=== PATIENT | male | born 1955 | race Caucasian/White ===

== ENCOUNTER 2024-03-10 09:38 | Day surgery (SDC) | payer OTHER, SELFPAY ==
--- NOTE | 2024-03-09 09:48 | HO.ANESPROP2 ---
Documented by User: Karen Robles NP 03/09/24 09:49 HPI - Anesthesia Eval Consult details Narrative: 68yo M for Colonoscopy COUNTS INCLUDE 234 BEDS AT THE [facility] Past Medical History Medical History (Updated 03/09/24 @ 06:50 by Lindsay Cedeño RN) Osteoarthritis Prostate cancer Family History Family History (Updated 03/09/24 @ 06:50 by Lindsay Cedeño RN) Other Colon cancer Surgical History Surgical History (Updated 03/09/24 @ 06:51 by Lindsay Cedeño RN) H/O prostatectomy Social History Social History Patient Tobacco Use Status: Never used Tobacco Use of substances other than those prescribed or required for medical reasons: No Are you DNR?: No Advance Directives: No Advance Directives Information Provided: Yes Meds Allergies Allergy/AdvReac Type Severity Reaction Status Date / Time No Known Allergies Allergy Verified 03/10/24 10:07 [No Known Allergies*] Home Medications ?Medication ?Instructions ?Recorded ?Confirmed ?Last Taken ?Type No Known Home Meds 03/09/24 03/09/24 Unknown History Assessment and Plan Assessment Anesthesia Assessment: Chart Reviewed Documented by User: Jakob Marcus MD 03/10/24 12:12 COUNTS INCLUDE 234 BEDS AT THE [facility] Past Medical History Medical History (Updated 03/09/24 @ 06:50 by Lindsay Cedeño RN) Osteoarthritis Prostate cancer Family History Family History (Updated 03/09/24 @ 06:50 by Lindsay Cedeño RN) Other Colon cancer Family history of problems with anesthesia: No Surgical History Surgical History (Updated 03/09/24 @ 06:51 by Lindsay Cedeño RN) H/O prostatectomy History of Problems with Anesthesia: No Social History Social History Patient Tobacco Use Status: Never used Tobacco Use of substances other than those prescribed or required for medical reasons: No Are you DNR?: No Advance Directives: No Advance Directives Information Provided: Yes Meds Allergies Allergy/AdvReac Type Severity Reaction Status Date / Time No Known Allergies Allergy Verified 03/10/24 10:07 [No Known Allergies*] Home Medications ?Medication ?Instructions ?Recorded ?Confirmed ?Last Taken ?Type No Known Home Meds 03/09/24 03/09/24 Unknown History Exam Airway Mallampati Class: II TM Dist: <=3cm Neck ROM: Full Loose/Missing/Broken Teeth: No Heart: rrr Lungs: cta Assessment and Plan Assessment Anesthesia Assessment: Anesthesia Plan Discussed Final Anesthetic Review Family History of Problems with Anesthesia: No History of Problems with Anesthesia: No NPO: Yes ASA Class: II Final Preanesthetic Review: No Changes in Pt Med Stat, Meds/Allgs Chart Reviewed, Consent Obtained/Reviewed and Anes Risks/Benef Reviewed Patient Risk: Intermediate Procedure Risk: Intermediate Anesthetic Plan Anesthetic Plan: TIVA Disposition: Standard PACU
[2024-03-10 10:02] VITALS: BMI 35.4
[2024-03-10 12:02] VITALS: BP 151/92; PULSE 16; RESP 16; TEMP 35.9; O2SAT 98
[2024-03-10] MEDS: Lactated Ringers 1,000 ML 100 ML IVCONT (12:03)
--- NOTE | 2024-03-10 12:50 | MHC.SHP ---
Pre-Procedural Eval Section A - 24 Hr Update-Section A only Date of Service: 03/10/24 The patient is an INPATIENT: No Changes since office visit: No Cold of Flu in the past 2 weeks, No New Medical Problems, No Changes in Medication and No Patient answered all questions The patient has been examined within 24 hours of the surgical procedure. The History & Physical has been completed within 30 days and I have reviewed it.: Yes Section B - Complete if H&P > 30 days Chief Complaint: screening Allergies: Allergies Allergy/AdvReac Type Severity Reaction Status Date / Time No Known Allergies Allergy Verified 03/10/24 10:07 [No Known Allergies*] Plan I have reviewed the history and physical and performed a pertinent physical examination on my patient. No changes have occurred unless specified. Time Spent With Patient Time: Total time managing care of this patient today ____ minutes.
[2024-03-10 14:14] VITALS: BP 95/65; PULSE 68; RESP 16; TEMP 36.8; O2SAT 94
--- NOTE | 2024-03-10 14:27 | OP_ITS ---
DATE OF SERVICE: 03/10/2024 SURGEON: Toby Martínez MD INDICATIONS: Colon cancer screening and family history of colon cancer. PREOPERATIVE DIAGNOSIS: POSTOPERATIVE DIAGNOSIS: PROCEDURE PERFORMED: ESTIMATED BLOOD LOSS: COMPLICATIONS: ANESTHESIA: ASSISTANTS: SPECIMENS: PROCEDURE: Colonoscopy to the cecum. MEDICATIONS: Monitored anesthesia care. DESCRIPTION OF PROCEDURE: A history and physical performed, the risks and benefits of the procedure were explained to the patient. Informed consent was obtained. The patient was placed in the left lateral decubitus position. A digital rectal exam was performed and was found to be normal. The Olympus pediatric video colonoscope was introduced into the rectum and advanced to the cecum. The cecum was identified by transillumination, palpation, and identification of ileocecal valve. Examination was performed. The scope was removed. He tolerated the procedure well and was taken to recovery area in stable condition. FINDINGS: The terminal ileum was briefly examined and appeared normal. The visualized colonic mucosa was normal. The quality of the prep was good. No polyps were identified. There was mild sigmoid diverticulosis. Retroflexed examination showed small internal hemorrhoids. IMPRESSION: Normal colonoscopy. RECOMMENDATIONS: 1. Follow up as needed. 2. Repeat colonoscopy is recommended in 5 years because of family history. MD NICOLE Schroeder/MASOUD / [id number]
[2024-03-10 14:29] VITALS: BP 119/90; PULSE 73; RESP 16; TEMP 36.8; O2SAT 96
== END 2024-03-10 14:50 | disposition home or self-care (01) ==
PROVIDERS: PCP Nurse Practitioner Family; Visit Provider Internal Medicine Gastroenterology
PROC: 0DJD8ZZ Inspection of Lower Intestinal Tract, Via Natural or Artificial Opening Endoscopic (ICD-10-PCS; CPT 45378; principal; 2024-03-10 13:00)
DX: Z12.11 Encounter for screening for malignant neoplasm of colon (principal); K57.30 Diverticulosis of large intestine without perforation or abscess without bleeding; K64.8 Other hemorrhoids; Z80.0 Family history of malignant neoplasm of digestive organs
CPT/HCPCS: G0105; J2704

== ENCOUNTER 2024-03-27 12:56 | Outpatient (AMB) | payer OTHER, SELFPAY ==
--- NOTE | 2024-03-27 14:07 | MHC.OFFVIS ---
Intake Visit Reasons: nocturia Allergies No Known Allergies [No Known Allergies*] Allergy (Verified 03/10/24 10:07) Medication List - Last Reconciled 03/27/24 by Edgardo Garcia MD vibegron (Gemtesa) 75 mg PO DAILY HPI Comments Details: Sherwin is a 68-year-old who is here for evaluation with complaints of urinary frequency, nocturia 4-5 times, denies daytime urgency. The patient has a history of prostate cancer diagnosed 2018, PSA 07/04/2019 was 11.39. Prostate biopsies done at [facility] on 08/01/2019 grade group 1 and grade group 2 adenocarcinoma of the prostate. Status post radical retropubic prostatectomy in [place]. PSAs have been negligible. Labs 07/14/2023 PSA less than 0.10. Urinalysis leukocytes negative blood trace, bladder scan PVR 0 mL. The patient states that he stops drinking by 18:00 he denies sleep apnea. We will trial Gemtesa 75 mg daily after dinner. The patient states that since his prostatectomy he no longer has erections. I have discussed treatment options to include oral medication as well as penile injections and penile prosthesis. The patient is interested in a penile prosthesis I will refer him to Dr. Jade for further evaluation. [facility] Medical History Pain in right knee Obesity, unspecified Nocturia more than twice per night History of herpes zoster Contact with and (suspected) exposure to other hazardous substances Carcinoma in situ of prostate Bilateral inguinal hernia, without obstruction or gangrene, recurrent Osteoarthritis Prostate cancer Surgical History H/O prostatectomy Family History Other Colon cancer Social History Patient Tobacco Use Status: Never used Tobacco Review of Systems Const All systems reviewed & are unremarkable except as noted in HPI and below Reports no additional complaints Eyes Reports no additional complaints ENT Reports no additional complaints Card Reports no additional complaints Resp Reports no additional complaints GI Reports no additional complaints Reports as per HPI Musc Reports no additional complaints Skin/Breast Reports system reviewed and no additional complaints, except as documented Neuro Reports no additional complaints Psych Reports no additional complaints Endo Reports no additional complaints Ariel/Lymph Reports no additional complaints Aller/Immun Reports no additional complaints Physical Exam Const General: healthy appearing, no acute distress and well developed Orientation/consciousness: patient oriented x3 HEENT Head: Yes normocephalic and Yes atraumatic Eyes Conjunctivae: conjunctivae normal Neck Neck: Yes normal visual inspection Chest Chest palpation & inspection: normal inspection of the chest Resp Effort & Inspection: normal respiratory effort Cardio Rate: regular rate GI Inspection: Yes normal to inspection Palpation (GI): Soft to palpation Skin General skin exam: no rashes or lesions noted Neuro General: patient oriented x3 Extrem General: No pedal edema Psych Appearance: grossly normal Affect: normal affect Office Procedures Post Void Residual Post Residual Void Post Void Residual (PVR): 0 [id number] Void Residual by ultrasound Results AMB Urinalysis, Automated UA Leukoctes 0 Jonel/uL Last Edit by Victoria Squires [facility] on 03/27/24 14:20 UA Nitrite Negative Last Edit by Victoria Squires [facility] on 03/27/24 14:20 UA Urobilinogen 0.2 mg/dL Last Edit by Victoria Squires [facility] on 03/27/24 14:20 UA Protein 0 mg/dL Last Edit by Victoria Squires [facility] on 03/27/24 14:20 UA pH 5.5 Last Edit by Victoria Squires [facility] on 03/27/24 14:20 UA Blood 10 Greg/uL Last Edit by Victoria Squires [facility] on 03/27/24 14:20 UA Specific [place] 1.030 Last Edit by Victoria Squires [facility] on 03/27/24 14:20 UA Ketone Negative Last Edit by Victoria Squires [facility] on 03/27/24 14:20 UA Bilirubin 0 mg/dL Last Edit by Victoria Squires [facility] on 03/27/24 14:20 UA Glucose 0 mg/dL Last Edit by Victoria Squires [facility] on 03/27/24 14:20 Results Reviewed Results Reviewed: 08/01/2019 - Prostate biopsy - adenocarcinoma grade group 1 and 2, report scanned into chart. Assessment & Plan Assessment & Plan (1) History of prostate cancer: Code(s): Z85.46 - Personal history of malignant neoplasm of prostate Category: Medical (2) Nocturia: Code(s): R35.1 - Nocturia Category: Medical (3) Erectile dysfunction after radical prostatectomy: Code(s): N52.31 - Erectile dysfunction following radical prostatectomy Category: Medical Plan Nocturia. Gemtesa daily in evening, ED post RRP fu with Dr Jade discuss penile prosthesis Orders: Orders AMB Post Void Residual by ultrasound Today R35.1 - Nocturia AMB Urinalysis Automated Today Z13.9 - Encounter for screening, unspecified Medications: New vibegron (Gemtesa) Take medication daily in the evening 75 mg PO DAILY 30 tabs 5RF vibegron (Gemtesa) 75 mg PO DAILY 30 tabs 5RF Patient Instructions: The patient had an opportunity to ask questions regarding treatment plan. The patient expressed understanding and agreement with the above treatment plan. The patient is aware they should contact our office by phone for worsening of their current condition or the appearance of new symptoms. Compliance is encouraged with any medications and followup testing that is ordered. It is a privilege to be allowed the opportunity to participate in the urologic care of your patient. If you have any questions or concerns regarding treatment for the above conditions please do not hesitate to contact me. The office telephone contact is [phone]. This note is constructed in part using voice recognition software. While every effort has been made to ensure accuracy deburrer errors may have been included. Yours sincerely, Edgardo Garcia MD Coding Level of Care Code New Pt Level 4 (72805) Diagnoses History of prostate cancer Z85.46 Nocturia R35.1 Erectile dysfunction after radical prostatectomy N52.31 CPT Codes Post Residual Void - PVR CPT Code: 26635-[id number] Void Residual by ultrasound ([id number])
== END 2024-03-27 14:41 | disposition home or self-care (01) ==
PROVIDERS: PCP Nurse Practitioner Family; Visit Provider Urology
DX: Z85.46 Personal history of malignant neoplasm of prostate (principal); R35.1 Nocturia; N52.31 Erectile dysfunction following radical prostatectomy; Z13.9 Encounter for screening, unspecified
CPT/HCPCS: 99204

== ENCOUNTER → 2024-03-27 12:56 | Outpatient (BNVA) | payer OTHER, SELFPAY | PROVIDERS: PCP Nurse Practitioner Family; Visit Provider Urology | DX: R35.1 Nocturia (principal); N52.31 Erectile dysfunction following radical prostatectomy; Z85.46 Personal history of malignant neoplasm of prostate | CPT/HCPCS: 51798; 81003; 99202 ==

== ENCOUNTER 2024-05-26 15:01 | Outpatient (AMB) | payer OTHER, SELFPAY ==
--- NOTE | 2024-05-26 15:10 | MHC.OFFVIS ---
Intake Visit Reasons: 2M Med Review/penile prosthesis(Gemtesa) Intake Note: Patient is present for2m med review/penile prosthesis(gemtesa) Urology Medication:myrbetriq, solifenacin, gemtesa Antibiotic Allergy:none Blood Thinner:none Mri Manager Required: No Allergies No Known Allergies [No Known Allergies*] Allergy (Verified 05/26/24 15:12) HPI Comments Details: Trip is a pleasant male. He is a patient of Dr. Kitchen. He is seen for the following urologic conditions - erectile dysfunction - prostate cancer - nocturia Interested in penile prosthetic Discussed protocol using penile pump in order to maximize placement of cylinder size Has failed oral medications Will obtain pump from [place] Erectile dysfunction Progressive since prostatectomy Prostate cancer 2019 Radical prostatectomy PSA undetectable since Nocturia Had trial of Getesa [facility] Medical History Pain in right knee Obesity, unspecified Nocturia more than twice per night History of herpes zoster Contact with and (suspected) exposure to other hazardous substances Carcinoma in situ of prostate Bilateral inguinal hernia, without obstruction or gangrene, recurrent Osteoarthritis Prostate cancer Surgical History H/O prostatectomy Family History Other Colon cancer Social History Patient Tobacco Use Status: Never used Tobacco Review of Systems Const Denies chills and Denies fever(s) Card Reports no additional complaints and Denies syncope Resp Denies cough GI Denies abdominal pain and Denies heartburn Reports as per HPI and Denies change in libido Neuro Denies syncope Psych Denies change in libido Endo Denies change in libido Physical Exam Const General: cooperative, healthy appearing, comfortable and no acute distress Orientation/consciousness: patient oriented x3 HEENT Face and sinus: Yes normal facial exam Mouth: moist mucous membranes Neck Neck: Yes normal visual inspection, Yes full ROM and Yes trachea midline Chest Chest palpation & inspection: normal inspection of the chest Resp Effort & Inspection: normal respiratory effort, able to speak in complete sentences and no respiratory distress GI Inspection: Yes normal to inspection Back/Spine/Pelvis Cervical Spine: normal cervical lordosis Thoracic/Lumbar Spine: thoracic and lumbar spine normal to inspection Skin General skin exam: no rashes or lesions noted Neuro General: patient oriented x3, gait normal, tone normal and moves all extremities Extrem General: Yes normal to inspection and Yes capillary refill normal Assessment & Plan Assessment & Plan (1) Nocturia: Code(s): R35.1 - Nocturia Category: Medical (2) Erectile dysfunction after radical prostatectomy: Code(s): N52.31 - Erectile dysfunction following radical prostatectomy Category: Medical Plan Six-month follow-up planning for penile prosthetic Patient Instructions: Imaging studies, laboratory and physical exam results were discussed and reviewed in detail. No major barriers to patient understanding were identified. An opportunity to ask questions regarding the treatment plan was provided. All questions were answered. The patient expressed understanding and agreement with the above treatment plan. The patient is aware they should contact our office by phone for worsening of their current condition or the appearance of new urologic symptoms. Compliance is encouraged with any medications and followup testing that is ordered. It is a privilege to participate in the urologic care of your patient. If you have any questions or concerns regarding treatment for the above conditions, or other urologic issues, please do not hesitate to contact me. The office telephone contact is [phone]. This note is constructed using voice recognition software. While every effort has been made to ensure accuracy hose stripper errors may have been included. Yours sincerely, Dr Alejandro Jade MD, [facility] - Urology Providers of Expert, Compassionate Care for the Genitourinary System Coding Level of Care Code New Pt Level 3 (64455) Diagnoses Nocturia R35.1 Erectile dysfunction after radical prostatectomy N52.31
== END 2024-05-26 16:10 | disposition home or self-care (01) ==
PROVIDERS: PCP Nurse Practitioner Family; Visit Provider Urology
DX: R35.1 Nocturia (principal); N52.31 Erectile dysfunction following radical prostatectomy
CPT/HCPCS: 99203

== ENCOUNTER → 2024-05-26 15:01 | Outpatient (BNVA) | payer OTHER, SELFPAY | PROVIDERS: PCP Nurse Practitioner Family; Visit Provider Urology | DX: N52.9 Male erectile dysfunction, unspecified (principal); C61 Malignant neoplasm of prostate; R35.1 Nocturia | CPT/HCPCS: 99202 ==

== ENCOUNTER 2024-12-20 08:10 | Outpatient (AMB) | payer OTHER, SELFPAY ==
--- OUTSIDE RECORDS SUMMARY | 2024-12-20 08:17 | XMS_ITS | Encounter Summary ---
Author Name [facility] Address [address] [place] [address] Care Team Providers Care Software Development Specialist Name Role Phone GULSHAN KITCHEN Primary Care Provider [facility] [place] Insurance Providers: All historical and current Section Date Range: From patient's date of to the date document was created. This section includes the names of all active insurance providers for the patient. Insurance Provider Type of Coverage Plan Name Start of Policy Coverage End of Policy Coverage Group Number Member ID Insurance Provider's Telephone Number Policy Meza's Name Patient's Relationship to Policy Meza MEDICARE (WNR) MEDICARE (M) PART A Jul 04, 2019 PART A [id number] KYLAH MARIAAROQUE PATIENT Selected Encounter This section includes the information on record at NH for the Encounter. Date/Time Encounter Type Encounter Description Reason Provider Source Nov 08, 2024 10:00 AM OFFICE O/P EST MOD 30 MIN PRIMARY CARE/MEDICINE ICD-10-CM R35.1 NoctSILVERIO Padilla AM [facility] Encounter Template Text not used by [place] Assessments - Encounter Diagnoses This section includes the primary and secondary diagnoses documented for the Encounter. Date/Time Primary/Secondary Diagnosis Diagnosis Name Provider Source Nov 08, 2024 10:18 AM PRIMARY Nocturia SILVERIO KITCHEN AM [facility] [place] [facility] Nov 08, 2024 10:18 AM SECONDARY Carcinoma in situ of prostate SILVERIO KITCHEN AM [facility] [place] [facility] Nov 08, 2024 10:18 AM SECONDARY Pain in left hip SILVERIO KITCHEN AM [facility] [place] [facility] Nov 08, 2024 10:18 AM SECONDARY Pain in left knee SILVERIO KITCHEN AM [facility] [place] [facility] Nov 08, 2024 10:18 AM SECONDARY Pain in right knee SILVERIO KITCHEN AM [facility] [place] [facility] Plan of Treatment: Future Appointments (+ 6 months) and Future Tests (+/- 45 days) The Plan of Treatment section includes [facility] care activities [facility] the [facility] This section includes future appointments and future orders which are active, pending or scheduled. Future Appointments This section includes appointments that were scheduled to occur 6 months from the date of the Encounter, up to a maximum of 20 appointments. The data comes from all [facility] facilities. Appointment Date/Time Appointment Type Appointme nt Facility Name Dec 18, 2024 01:00 PM AMBULATORY - REHAB MEDICIN E [facility] [place] [facility] Dec 20, 2024 08:45 AM AMBULATORY - MEDICINE [facility] [place] [facility] Jan 01, 2025 02:00 PM AMBULATORY - REHAB MEDICIN E [facility] [place] [facility] Jan 08, 2025 10:00 AM AMBULATORY - MEDICINE [facility] [place] [facility] Jan 15, 2025 01:00 PM AMBULATORY - REHAB MEDICIN E [facility] [place] [facility] Jan 29, 2025 01:00 PM AMBULATORY - REHAB MEDICIN E [facility] [place] [facility] February 05, 2025 02:00 PM AMBULATORY - REHAB MEDICIN E [facility] [place] [facility] Active, Pending, and Scheduled Orders This section includes a listing of several types of active, pending, and scheduled orders, including clinic medications orders, diagnostic test orders, procedure orders and consult orders; where the start date of the order is 45 days before the date of the Encounter or 45 days after the date of theEncounter. The data comes from all [facility]. Test Date/Time Test Type Test Details Facility Name Nov 29, 2024 09:57 AM Consult Order COMMUNITY CARE-UROLOGY Cons Shredded Filler Cutter Operator's Choice [facility] Dec 06, 2024 12:00 AM Laboratory - Chemistry Order HEMOGLOBIN A1C PANEL BLOOD (LAV-BLOOD) [facility] Dec 06, 2024 12:00 AM Laboratory - Chemistry Order PSA BLOOD (SST-SERUM) [facility] Dec 06, 2024 12:00 AM Laboratory - Chemistry Order BASIC METABOLIC PANEL (non-fasting) BLOOD (SST-SERUM) [facility] Dec 06, 2024 12:00 AM Laboratory - Chemistry Order LIPID PANEL, NON FASTING BLOOD (SST-SERUM) [facility] Dec 06, 2024 12:00 AM Laboratory - Chemistry Order LIVER FUNCTION BLOOD (SST-SERUM) [facility] Dec 06, 2024 12:00 AM Laboratory - Chemistry Order CBC BLOOD (LAV-BLOOD) [facility] Vital Signs: All taken on the encounter date This section contains inpatient and outpatient Vital Signs collected on the date of the Encounter. Date/Time Temperature Pulse Blood Pressure Respiratory Rate SP02 Pain Height Weight Body Mass Index Source Nov 08, 2024 10:23 AM 134/86 [facility] Nov 08, 2024 09:56 AM 97.4 57 147/90 20 98 4 69 251 37 [facility] Social History: Smoking Status (Most current) and Tobacco Use (All prior to encounter date) This section includes the most current, and the historical, smoking and tobacco- related health factors from the NH facility where the Encounter took place. Current Smoking Status This section includes the most current smoking, or tobacco-related health factor, from the NH facility where the Encounter took place. Date/Time Current Smoking Status Comment Facil ity May 10, 2024 08:30 AM NH-TOBACCO FORMER USER [facility] Tobacco Use History This section includes a history of the smoking, or tobacco-related health factors, that were collected on or before the date of the Encounter. The data comes from the NH facility where the Encounter took place. Date/Time Smoking Status/Tobacco Use Comment F acility May 10, 2024 08:30 AM NH-TOBACCO QUIT 15 YRS OR MORE [facility] Mar 30, 2023 08:17 AM NH-TOBACCO FORMER USER [facility] Mar 30, 2023 08:17 AM NH-TOBACCO QUIT 15 YRS OR MORE [facility] Radiology Reports: +/- 30 days of the encounter Radiology Reports For cases when an order for radiology services may have been completed prior to the date of the Encounter, the report list includes the Radiology Reports that were completed up to 30 days before dateof the Encounter. For cases when an order for radiology services may have been completed after the date of the Encounter, the report list also includes the Radiology Reports that were completed up to30 days after date of the Encounter. The data comes from all [place] treatment facilities. 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 Comparison: None. Findings: The bony mineralization is normal. 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 The pelvic bones are intact. No suspicious bone lesions are identified. No acute bony abnormality is seen. Impression: No acute bony abnormality with mild degenerative changes of the left hip, as described above. Primary Diagnostic Code: No immediate attention required Primary Interpreting Staff: THAO URIBE JR, Radiologist ([facility]ainer) /THAO GRAHAM JR [facility] Encounter Notes: All associated encounter notes This section contains the clinical notes associated to the Encounter. Date/Time Encounter Note(s) Provider Source Nov 08, 2024 03:20 PM PRIMARY CARE NURSE PRACTITIONER OUTPATIENT NOTE: LOCAL TITLE: NURSE PRACTITIONER OUTPATIENT NOTE STANDARD TITLE: PRIMARY CARE NURSE PRACTITIONER OUTPATIENT NOTE DATE OF NOTE: NOV 08, 2024@15:20 ENTRY DATE: NOV 08, 2024@15:20:22 AUTHOR: GULSHAN KITCHEN EXP COSIGNER: URGENCY: STATUS: COMPLETED t/c to [place], i explained xray findings, discussion options, he is in agreement with PT consult. /malissa/ Gulshan Kitchen DNP, PILOT CONTROL OPERATOR-BC, CNL Primary Care Nurse Practitioner Signed: 11/08/2024 15:21 GULSHAN KITCHEN [facility] Nov 08, 2024 10:13 AM PRIMARY CARE NURSE PRACTITIONER OUTPATIENT NOTE: LOCAL TITLE: NURSE PRACTITIONER OUTPATIENT NOTE STANDARD TITLE: PRIMARY CARE NURSE PRACTITIONER OUTPATIENT NOTE DATE OF NOTE: NOV 08, 2024@10:13 ENTRY DATE: NOV 08, 2024@10:13:42 AUTHOR: GULSHAN KITCHEN EXP COSIGNER: URGENCY: STATUS: COMPLETED Chief complaint: Patient is a 69 year old . HPI: Pleasant male here for interim visit. He reports a 2 week onset of unprovoked left hip pain. Intermittent, resolves with rest. Otherwise, reports doing ok, left knee is feeling better. Allergies: Patient has answered NKA The following VA and Non-VA meds were reconciled with patient. The patient was educated on the use of the medications including indication and side effects. Active and Recently Outpatient Medications (excluding Supplies): Active Outpatient Medications Status ====== 1) SOLIFENACIN SUCCINATE 10MG TAB TAKE ONE TABLET BY MOUTH ONCE ACTIVE DAILY 2) VIBEGRON 75MG TAB TAKE ONE TABLET BY MOUTH ONCE DAILY EVERY HOLD EVENING Indication: FOR OVERACTIVE BLADDER Active Non-VA Medications Status ====== 1) Non-VA MULTIVITAMIN/MINERALS CAP/TAB 1 TABLET BY MOUTH ONCE ACTIVE DAILY 3 Total Medications Review of Systems: Constitutional: (-)for Fevers, chills, weakness, nights sweats On examination: 97.4 F [36.3 C] (11/08/2024 09:56)147/90 (11/08/2024 09:56)57 (11/08/2024 09:56)20 (11/08/2024 09:56)4 (11/08/2024 09:56)BMI: 37.1251 lb [113.85 kg] (11/08/2024 09:56) is alert and oriented X3 Neck: supple without masses, trachea midline, ln not palpable, no thyromegaly Cardiovasc: 2plus carotids without bruits, no JVD Heart Reguler rate and rhythm NL S1S2 no S3 or murmur Respiration: Normal respiratory effort, lungs clear ABD: Benign normal active bowel sounds no HSM no rebound or referred pain EXT: no clubbing, edema, or cyanosis All diagnostics from past month were reviewed with patient. Assessment/plan: Active problems - Computerized Problem List is the source for the followin. Nocturia - he did not tolerate med, he is following with non va urology 2. Carcinoma of prostate - maintains urology follow up 3. left hip pain - xray today, consider PT vs. Ortho Health Care Maintenance: He had AAA at [facility], negative findings. Today I spent 30 minutes on some or all of the following: chart review, history, physical examination, treatment planning, education and counseling of the patient/family/patient care nursing assistant, placing orders, communicating with other health care providers, completing health and wellness screenings (see below) and documentation in the electronic health record. Follow up visit in December with labs. He will be leaving for the [facility] after that. Screen for Abd Aortic Aneurysm: A prior imaging procedure has been done that adequately screened for AAA. Date of Imaging: October 09, 2022 No abdominal aortic aneurysm. Medication Reconciliation: Outpatient: Has the patient been taking medications as documented in the EMLR? YES: The patient has been taking medications as documented in the EMLR. Essential Medication List for Review used to complete this medication reconciliation. INCLUDED IN THIS LIST: Alphabetical list of active outpatient prescriptions dispensed from this NH (local) and dispensed from another NH or [facility] facility (remote) as well as inpatient orders (local, pending and active), local clinic medications, locally documented non-VA medications, and local prescriptions that have or been discontinued in the past 90 days. - All changes in medications, including all non-VA/Herbal/OTC medications were entered into CPRS. - If there were any medications the patient should no longer take, they were discontinued. - The patient/caregiver was instructed to update this list, discard old lists, and take this list to the next appointment, whether with a VA or non-VA provider. /malissa/ Gulshan Kitchen DNP, PILOT CONTROL OPERATOR-BC, CNL Primary Care Nurse Practitioner Signed: 11/08/2024 10:19 GULSHAN KITCHEN [facility] [place] Nov 08, 2024 10:00 AM PREVENTIVE MEDICINE NURSING NOTE: LOCAL TITLE: CLINICAL REMINDERS/NURSING STANDARD TITLE: PREVENTIVE MEDICINE NURSING NOTE DATE OF NOTE: NOV 08, 2024@10:00 ENTRY DATE: NOV 08, 2024@10:00:45 AUTHOR: SUNNY JOHNSON COSIGNER: URGENCY: STATUS: COMPLETED RHS Screen: RHS Screen Session Format: Face to Face Environmental Check Upon inquiry, the individual reports that the environment is safe to proceed. Informed Consent to Screen and Document The individual consents to proceed with screening. The individual consents to documentation of responses. PRIMARY SCREEN: In the past 12 months, how often did a current or former intimate partner (e.g., boyfriend, girlfriend, , , sexual partner): 1. Scream or curse at you Never 2. Insult or talk down to you Never 3. Threaten you with harm Never 4. Physically hurt you Never 5. Force or pressure you to have sexual contact against your will, or when you were unable to say no Never ?? The HITS tool (items 1-4 above) is [place] copyright protected by Dipak Dominguez MD, and the user has full rights to use it throughout the [place] system. PRIMARY SCREEN RESULT: The Primary Screen is NEGATIVE. The individual answered never to all forms of IPV above (i.e., answered never to all 5 items) The individual accepts education and/or resources: No EDUCATION: Other: not interested at this time /malissa/ Sunny Johnson Health Audio Production Manager MACHINERY CLEANER,PRIMARY CARE Signed: 11/08/2024 10:02 [facility]NSON [facility]
--- OUTSIDE RECORDS SUMMARY | 2024-12-20 08:17 | XMS_ITS ---
Author Name [facility] [place] [facility] [place] Address [address] [place] [address] Care Team Providers Care Legal Support Assistant Name Role Phone GULSHAN KITCHEN Primary Care Provider Neymar [facility] Insurance Providers: All historical and current Section [...] PART A Jul 04, 2019 PART A [id number] [place]LAH MARIAAROQUE PATIENT Selected Encounter This section includes the information on record at [place] for the Encounter. Date/Time Encounter Type Encounter Description Reason Provider Source May 10, 2024 08:30 AM OFFICE O/P EST LOW 20 MIN PRIMARY CARE/MEDICINE ICD-10-CM M25.562 Pain in left knee PATRICIA KITCHEN Abilio Encounter Template Text not used by [place] Assessments - Encounter Diagnoses This section includes the primary and secondary diagnoses documented for the Encounter. Date/Time Primary/Secondary Diagnosis Diagnosis Name Provider Source May 10, 2024 08:46 AM PRIMARY Pain in left knee [facility]ILVERIO [facility]ITCHEN [facility] [place] [facility] [place] [facility] May 10, 2024 08:46 AM SECONDARY Pain in right knee [facility] [place] [facility] Plan of Treatment: Future Appointments (+ 6 months) and Future Tests (+/- 45 days) The Plan of Treatment section includes future care activities for the patient [facility] [place] [facility] This section includes future appointments and future orders which are active, pending or scheduled. Future Appointments This section includes appointments that were scheduled to occur 6 months from the date of the Encounter, up to a maximum of 20 appointments. The data comes from all [place] treatment facilities. Appointment Date/Time Appointment Type Appointme nt Facility Name May 11, 2024 02:30 PM AMBULATORY - MEDICINE [facility] [place] [facility] Jun 22, 2024 01:00 PM AMBULATORY MEDICINE [place] [facility] [facility] [facility] Jul 10, 2024 10:00 AM AMBULATORY MEDICINE [facility] [place] [facility] Nov 08, 2024 10:00 AM [facility]UL[facility] Vital Signs: All taken on the encounter date This section contains inpatient and outpatient Vital Signs collected on the date of the Encounter. Date/Time Temperature Pulse Blood Pressure Respiratory Rate SP02 Pain Height Weight Body Mass Index Source May 10, 2024 08:17 AM 97.1 61 137/85 20 99 4 71 255 36 [facility] Social History: Smoking Status (Most current) and Tobacco Use (All prior to encounter date) This section includes the most current, and the historical, smoking and tobacco- related health factors from the [place] facility where the Encounter took place. Current Smoking Status This section includes the most current smoking, or tobacco-related health factor, from the [place] facility where the Encounter took place. Date/Time Current Smoking Status Comment Facil ity May 10, 2024 08:30 AM VA-TOBACCO [facility]ER [facility] Tobacco Use History This section includes a history of the smoking, or tobacco-related health factors, that were collected on or before the date of the Encounter. The data comes from the [place] facility where the Encounter took place. Date/Time Smoking Status/Tobacco Use Comment F acility May 10, 2024 08:30 AM VA-TOBACCO QUIT 15 YRS OR MORE [place] [facility] [facility] [facility] Mar 30, 2023 08:17 AM VA-TOBACCO FORMER USER [place] [facility] Mar 30, 2023 08:17 AM VA-TOBACCO QUIT 15 YRS OR MORE [facility] Radiology Reports: +/- 30 days of [...] the Encounter. The data comes from all [place] treatment facilities. 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 Comparison: Knee radiographs from 2023. Findings: There is moderate medial compartment joint space loss in the knees consistent with degenerative joint disease. There is mild narrowing of the lateral joint compartments bilaterally as well. No bony fracture, dislocation or subluxation is identified. The patellae are normally located with mild narrowing of the left lateral patellofemoral joint compartment. A small left suprapatellar knee joint effusion is now identified. Impression: New suprapatellar joint effusion with stable arthritic changes of the knees, as described above. Primary Diagnostic Code: No immediate attention required Primary Interpreting Staff: THAO URIBE JR, Radiologist ([employer] Insulation Supervisor) /THAO GRAHAM JR [facility] Encounter Notes: All associated encounter notes This section contains the clinical notes associated to the Encounter. Date/Time Encounter Note(s) Provider Source May 10, 2024 02:48 PM PRIMARY CARE NURSE PRACTITIONER OUTPATIENT NOTE: LOCAL TITLE: NURSE PRACTITIONER OUTPATIENT NOTE STANDARD TITLE: PRIMARY CARE NURSE PRACTITIONER OUTPATIENT NOTE DATE OF NOTE: MAY 10, 2024@14:48 ENTRY DATE: MAY 10, 2024@14:48:30 AUTHOR: GULSHAN KITCHEN EXP COSIGNER: URGENCY: STATUS: COMPLETED t/c to , i explained left knee xray results, plan is to proceed with orthosurg consult - i added xray results to consult. /malissa/ Gulshan Kitchen DNP, HEATING ENGINEER-BC, CNL Primary Care Nurse Practitioner Signed: 05/10/2024 14:49 GULSHAN KITCHEN [place] [facility] [facility] May 10, 2024 08:33 AM PRIMARY CARE NURSE PRACTITIONER OUTPATIENT NOTE: LOCAL TITLE: NURSE PRACTITIONER OUTPATIENT NOTE STANDARD TITLE: PRIMARY CARE NURSE PRACTITIONER OUTPATIENT NOTE DATE OF NOTE: MAY 10, 2024@08:33 ENTRY DATE: MAY 10, 2024@08:33:34 AUTHOR: GULSHAN KITCHEN EXP COSIGNER: URGENCY: STATUS: COMPLETED Chief complaint: Patient is a 68 year old [place]. HPI: Pleasant male [place] here for interim visit. CC worsening left knee pain. Previous imaging noted for mod degen disease. At this point stability is intact. I will get updated imaging, consult to orthosurg. Allergies: Patient has answered NKA The following VA and Non-VA meds were reconciled with patient. The patient was educated on the use of the medications including indication and side effects. Active and Recently Outpatient Medications (excluding Supplies): Active Outpatient Medications Status = 1) SOLIFENACIN SUCCINATE 10MG TAB TAKE ONE TABLET BY ACTIVE MOUTH ONCE DAILY 2) VIBEGRON 75MG TAB TAKE ONE TABLET BY MOUTH ONCE DAILY HOLD EVERY EVENING Active Non-VA Medications Status = 1) Non-VA MULTIVITAMIN/MINERALS CAP/TAB 1 TABLET BY ACTIVE MOUTH ONCE DAILY 3 Total Medications Review of Systems: Constitutional: (-)for Fevers, chills, weakness, nights sweats On examination: 97.1 F [36.2 C] (05/10/2024 08:17)137/85 (05/10/2024 08:17)61 (05/10/2024 08:17) 20 (05/10/2024 08:17)4 (05/10/2024 08:17)BMI: 35.6255 lb [115.67 kg] (05/10/2024 08:17) is alert and oriented X3 Cardiovasc: 2plus carotids without bruits, no JVD [...] Problem List is the source for the following: Left knee pain - see above Review of medial record = 5mins Time spent with Patient including shared decision making = 10 mins Post visit documentation = 5mins Total time = 20 mins Follow up visit as scheduled PTSD Screening: PC-PTSD-5 A PTSD screening test (PC-PTSD-5) was negative (score=0). IN THE PAST MONTH, have you ever had any experience that was so frightening, horrible or traumatic. For example: A serious accident or fire a physical or sexual assault or abuse An earthquake or flood A war Seeing someone be killed or seriously injured Having a loved one through homicide or suicide 1. Have you ever experienced this kind of event? YES 2. Had nightmares about the event(s) or thought about the event(s) when you did not want to? NO 3. Tried hard not to think about the event(s) or went out of your way to avoid situations that reminded you of the event(s)? NO 4. Been constantly on guard, watchful, or easily startled? NO 5. Benson numb or detached from people, activities, or your surroundings? NO 6. Benson guilty or unable to stop blaming yourself or others for the event(s) or any problems the event(s) may have caused? NO Medication Reconciliation: Outpatient: Has the patient been taking medications as documented in the EMLR? YES: The patient has been taking medications as documented in the EMLR. Essential Medication List for Review used to complete this medication reconciliation. INCLUDED IN THIS LIST: Alphabetical list of active outpatient prescriptions dispensed from this [place] (local) and dispensed from another VA or DoD facility (remote) as well as inpatient orders [...] or non-VA provider. /malissa/ Gulshan Kitchen DNP, HEATING ENGINEER-BC, CNL Primary Care Nurse Practitioner Signed: 05/10/2024 08:46 GULSHAN KITCHEN [place] [facility] [facility] [facility] May 10, 2024 08:19 AM PREVENTIVE MEDICINE NURSING NOTE: LOCAL TITLE: CLINICAL REMINDERS/NURSING STANDARD TITLE: PREVENTIVE MEDICINE NURSING NOTE DATE OF NOTE: MAY 10, 2024@08:19 ENTRY DATE: MAY 10, 2024@08:19:55 AUTHOR: SUNNY JOHNSON COSIGNER: URGENCY: STATUS: COMPLETED Homelessness/Food Insecurity Screen: In the past 2 months, have you been living in stable housing that you own, rent, or stay in as part of a household? Yes - Living in stable housing. Are you worried or concerned that in the next 2 months you may NOT have stable housing that you own, rent, or stay in as part of a household? No - Not worried about housing near future The [place] reports the following: Within the past 12 months, you worried whether your food would run out before you got money to buy more. Never true Within the past 12 months, the food you bought just didn't last and you didn't have money to get more. Never true Depression Screening: Perform PHQ-2 A PHQ-2 screen was performed. The score was 0 which is a negative screen for depression. Over the past two weeks, how often have you been bothered by the following problems? 1. Little interest or pleasure in doing things Not at all 2. Feeling down, depressed, or hopeless Not at all Tobacco Use Screening: The patient is a former tobacco user. The patient quit fifteen or more years ago. Alcohol Use Screen (AUDIT-C): Alcohol Screen: SCREEN FOR ALCOHOL (AUDIT-C) An alcohol screening test (AUDIT-C) was negative (score=1). 1. How often did you have a drink containing alcohol in the past year? Consider a drink to be a 12 ounce can or bottle of regular beer, 8 ounces of malt liquor, a 5 ounce glass of table wine, or a 1.5 ounce shot of liquor (like scotch, gin, or vodka). Monthly or less 2. How many drinks containing alcohol did you have on a typical day when you were drinking in the past year? One or two drinks 3. How often did you have six or more drinks on one occasion in the past year? Never /malissa/ [facility] Transitional Nurse SIEBEL ARCHITECT,PRIMARY CARE Signed: 05/10/2024 08:23 SUNNY JOHNSON CNTRL [facility]
--- OUTSIDE RECORDS SUMMARY | 2024-12-20 08:17 | XMS_ITS | Clinical Summary ---
Author Organization [facility] Address [id number] [place] [id number] Care Team Providers Care Slitter And Rewinder Name Role Phone Duncan-Lisa Mclain MD Primary Care Provid er Surgical History Surgery Date Site/Laterality Comments KNEE ARTHROSCOPY Bilateral PROCEDURE: NM ARTHROSCOPY AID TX SPINE&/FX KNEE W/O FIXJ; COMMENT: for torn ligaments Family History Medical History Relation Name Comments Diabetes Brother 1 htn, heart prob lems Prostate cancer Brother 2 Hypertension Brother 3 Depression Brother 4 Heart attack Brother 5 age 50s Heart attack Brother 6 age 59 Heart attack Brother 7 age early 50s Lung cancer Father Colon cancer Mother Relation Name Status Comments Brother 1 Brother 2 Brother 3 Brother 4 Brother 5 Brother 6 Brother 7 Brother 8 Father Mother Social History Tobacco Use Types Packs/Day Years Used Date Smoking Tobacco: Never Alcohol Use Standard Drinks/Week Comments Yes 0 (1 standard drink = 0.6 oz pur e alcohol) Sex and Gender Information Value Date Recorded Sex Assigned at Not on file Legal Sex Male 3:42 AM EST Gender Identity Not on file Sexual Orientation Not on file Obstetrics History Plan of Treatment Health Maintenance Due Date Last Done Comments DTaP,Tdap,and Td Vaccines (1 - Tdap) 1973 Pneumococcal Vaccine: 50+ Years (1 of 1 - PCV) 2004 Zoster Vaccines (1 of 2) 2004 Abdominal Aortic Aneurysm (AAA) Screen 09/06/2022 Cholesterol Screening (Lipid Panel) 09/06/2022 Colorectal Cancer Screening: Colonoscopy 09/06/2022 Depression Screening 09/06/2022 Falls Risk Assessment 09/06/2022 Hepatitis C Screening 09/06/2022 Social Influencers of Health Screening 09/06/2022 COVID-19 Vaccine (1 - 2023-2 5 season) 2024 Influenza Vaccine (#1) 2024 8, 08/03/2016 RSV Immunization Patients 60 + Years Old (1 - 1-dose 75+ series) 2029 HIB Vaccines Aged Out No longer eligi ble based on patient's age to complete this topic HPV Vaccines Aged Out No longer eligi ble based on patient's age to complete this topic Hepatitis A Vaccines Aged Out No long er eligible based on patient's age to complete this topic Hepatitis B Vaccines Aged Out No long er eligible based on patient's age to complete this topic IPV Vaccines Aged Out No longer eligi ble based on patient's age to complete this topic MMR Vaccines Aged Out No longer eligi ble based on patient's age to complete this topic Meningococcal ACWY Vaccine Aged Out N o longer eligible based on patient's age to complete this topic Meningococcal B Vacine Aged Out No lo nger eligible based on patient's age to complete this topic RSV Immunization Patients Under 20 months Aged Out No longer eligible b ased on patient's age to complete this topic Varicella Vaccines Aged Out No longer eligible based on patient's age to complete this topic Care Teams Slitter And Rewinder Relationship Specialty Start Date End Date [place]-Lisa Mclain MD PCP - General Internal Medicine 08/28/14
--- OUTSIDE RECORDS SUMMARY | 2024-12-20 08:17 | XMS_ITS | Encounter Summary ---
Author Name [facility] [place] Address [address] [place] [address] Care Team Providers Care Licensed Psychiatric Technician Name Role Phone MELONIE LOERA Primary Care Provider Neymar mulligan Insurance Providers: All historical and current Section [...] PART A Jul 04, 2019 PART A [id number] ROQUE MONTERO PATIENT Selected Encounter This section includes the [place] for the Encounter. Date/Time Encounter Type Encounter Description Reason Provider Source Apr 03, 2024 07:53 PM QPRP OL DIG ASSMT&MGMT 5-10 CLINICAL PHARMACY ICD-10-CM Z04.89 Encounter for examination and observation for oth reasons JESSICA GOTTLIEB Abilio Encounter Template Text not used by [place] Assessments - Encounter Diagnoses This section includes the primary and secondary diagnoses documented for the Encounter. Date/Time Primary/Secondary Diagnosis Diagnosis Name Provider Source Apr 03, 2024 08:02 PM PRIMARY Encounter for examination and observation for oth reasons JESSICA GOTTLIEB [facility] [place] [facility] Plan of Treatment: Future Appointments (+ 6 months) and Future Tests (+/- 45 days) The Plan of Treatment section includes future care activities for the patient from all [place] treatmentfacilities. This section includes future appointments and future orders which are active, pending or scheduled. Future Appointments This section includes appointments that were scheduled to occur 6 months from the date of the Encounter, up to a maximum of 20 appointments. The data comes from all [facility] facilities. Appointment Date/Time Appointment Type Appointme nt Facility Name May 10, 2024 08:30 AM AMBULATORY - MEDICINE [facility] May 11, 2024 02:30 PM [facility] Jun 22, 2024 01:00 PM [facility] Jul 10, 2024 10:00 AM AMBULATORY MEDICINE [facility] Social History: Smoking Status (Most current) and Tobacco Use (All prior to encounter date) This section includes the most current, and the historical, smoking and tobacco- related health factors from the [place] facility where the Encounter took place. Current Smoking Status This section includes the most current smoking, or tobacco-related health factor, from the [place] facility where the Encounter took place. Date/Time Current Smoking Status Comment Facil ity Mar 30, 2023 08:17 AM VA-TOBACCO FORMER USER [facility] Tobacco Use History This section includes a history of the smoking, or tobacco-related health factors, that were collected on or before the date of the Encounter. The data comes from the [place] facility where the Encounter took place. Date/Time Smoking Status/Tobacco Use Comment F acility Mar 30, 2023 08:17 AM VA-TOBACCO QUIT 15 YRS OR MORE [facility] Encounter Notes: All associated encounter notes This section contains the clinical notes associated to the Encounter. Date/Time Encounter Note(s) Provider Source Apr 03, 2024 08:02 PM ADDENDUM: LOCAL TITLE: Addendum STANDARD TITLE: ADDENDUM DATE OF NOTE: APR 03, 2024@20:02:43 ENTRY DATE: APR 03, 2024@20:02:45 AUTHOR: JESSICA GOTTLIEB EXP COSIGNER: URGENCY: STATUS: COMPLETED Please fax this denial to provider office. Please include CFU for nadineabegron. Thank you /malissa/ JESSICA GOTTLIEB, PHARMD, BCPS CLINICAL PHARMACIST PRACTITIONER Signed: 04/03/2024 20:03 Receipt Acknowledged By: 04/04/2024 10:23 /malissa/ MELONIE RAM CC [employer] Manager Architect --- Original Document --- 04/03/24 [facility] PRESCRIPTION NOTE: [place] approved for community care UROLOGY though 09/2024. Received prescription for the following: Vibegron 75 mg tablet Medical history relevant to this request: - Per consult h/o prostate ca, prostatectomy 2019. Now getting up 6-7x per night to urinate Per pharmacy review, non-formulary/prior authorization is: [ ] Approved [x] Denied - Compelling evidence for requested indication is lacking Provider notified via [x] fax - Will ask CC tech to please fax provider office [ ] telephone: spoke with Comments: - Formulary urinary antispamodic agents include oxybutynin, solifenacin, tolterodine and trospium. These agents should be tried first, or documentation of treatment failure/contraindications should be provided. - If formulary alternatives have failed or are contraindicated, mirabegron requires a prior authorization. Will attach CFU. Note that it must be filled out in its entirety. - If patient has tried and failed mirabegron, may consider requesting vibegron in the future. Time Spent: 10 minutes /malissa/ JESSICA GOTTLIEB PHARMD, BCPS CLINICAL PHARMACIST PRACTITIONER Signed: 04/03/2024 20:02 JESSICA GOTTLIEB [facility] [place] [facility] Apr 03, 2024 07:53 PM PHARMACY OUTPATIEN T MEDICATION MGT NOTE: LOCAL TITLE: [facility] PRESCRIPTION NOTE STANDARD TITLE: PHARMACY OUTPATIENT MEDICATION MGT NOTE DATE OF NOTE: APR 03, 2024@19:53 ENTRY DATE: APR 03, 2024@19:53:54 AUTHOR: JESSICA GOTTLIEB EXP COSIGNER: URGENCY: STATUS: COMPLETED [facility] PRESCRIPTION NOTE Has [place] approved for community care UROLOGY though 09/2024. Received prescription for the following: Vibegron 75 mg tablet Medical history relevant to this request: - Per consult h/o prostate ca, prostatectomy 2019. Now getting up 6-7x per night to urinate Per pharmacy review, non-formulary/prior authorization is: [ ] Approved [x] Denied - Compelling evidence for requested indication is lacking Provider notified via [x] fax - Will ask CC tech to please fax provider office [ ] telephone: spoke with Comments: - Formulary urinary antispamodic agents include oxybutynin, solifenacin, tolterodine and trospium. These agents should be tried first, or documentation of treatment failure/contraindications should be provided. - If formulary alternatives have failed or are contraindicated, mirabegron requires a prior authorization. Will attach CFU. Note that it must be filled out in its entirety. - If patient has tried and failed mirabegron, may consider requesting vibegron in the future. Time Spent: 10 minutes /malissa/ JESSICA GOTTLIEB PHARMD, JUAN CLINICAL PHARMACIST PRACTITIONER Signed: 04/03/2024 20:02 04/03/2024 ADDENDUM STATUS: COMPLETED Please fax this denial to provider office. Please include CFU for mirabegron. Thank you /doug GOTTLIEB PHARMD, YUMIKOS CLINICAL PHARMACIST PRACTITIONER Signed: 04/03/2024 20:03 Receipt Acknowledged By: * AWAITING SIGNATURE * MELONIE RAM ADITIYA [place] [facility]
--- OUTSIDE RECORDS SUMMARY | 2024-12-20 08:18 | XMS_ITS ---
Author Name [facility] of Vetera Affairs (VA) Organization [facility] of Vetera Affairs ([place]) Address [address] [place] [address] Care Team Providers Care Vault Worker Name Role Phone MELONIE KITCHEN Primary Care Provider Neymar mulligan Insurance Providers: [...] PART A Jul 04, 2019 PART A [id number] KYLAHROQUE PATIENT Selected Encounter This section includes the information on record at ID for the Encounter. Date/Time Encounter Type Encounter Description Reason Pro vider Source Nov 28, 2024 09:23 AM Outpatient Encounter COMMUNITY CARE CONSULT IHE Encounter Template Text not used by ID Plan of Treatment: Future Appointments (+ 6 months) and Future Tests (+/- 45 days) The Plan of Treatment section includes future care activities for the patient from all ID treatmentfacilities. This section includes future appointments and future orders which are active, pending or scheduled. Future Appointments This section includes appointments that were scheduled to occur 6 months from the date of the Encounter, up to a maximum of 20 appointments. The data comes from all ID treatment facilities. Appointment Date/Time Appointment Type Appointme nt Facility Name Dec 18, 2024 01:00 PM [facility] [place] [facility] Dec 20, 2024 08:45 AM AMBULATORY - MEDICINE [place] [facility] [facility] Jan 01, 2025 02:00 PM AMBULATORY - REHAB MEDICIN E [place] [facility] [place] [facility] Jan 08, 2025 10:00 AM AMBULATORY - MEDICINE [place] [facility] Jan 15, 2025 01:00 PM AMBULATORY - REHAB MEDICIN E [place] [facility] [facility] Jan 29, 2025 01:00 PM AMBULATORY - REHAB MEDICIN E [place] [facility] [facility] February 05, 2025 02:00 PM AMBULATORY - REHAB MEDICIN E [place] [facility] [facility] May 14, 2025 02:00 PM [facility]UL[facility] Active, Pending, and Scheduled Orders This section includes a listing of several types of active, pending, and scheduled orders, including clinic medications orders, diagnostic test orders, procedure orders and consult orders; where the start date of the order is 45 days before the date of the Encounter or 45 days after the date of theEncounter. The data comes from all ID treatment facilities. Test Date/Time Test Type Test Details Facility Name Nov 29, 2024 09:57 AM Consult Order COMMUNITY CARE-UROLOGY Cons Banking Manager's Choice [facility] Dec 06, 2024 12:00 AM Laboratory - Chemistry Order HEMOGLOBIN A1C PANEL BLOOD (LAV-BLOOD) [facility] Dec 06, 2024 12:00 AM Laboratory - Chemistry Order PSA BLOOD (SST-SERUM) [facility] [place] [facility] Dec 06, 2024 12:00 AM Laboratory - Chemistry Order BASIC METABOLIC PANEL (non-fasting) BLOOD (SST-SERUM) [facility] Dec 06, 2024 12:00 AM Laboratory - Chemistry Order LIPID PANEL, NON FASTING BLOOD (SST-SERUM) [facility] Dec 06, 2024 12:00 AM Laboratory - Chemistry Order LIVER FUNCTION BLOOD (SST-SERUM) [facility], [facility] Dec 06, 2024 12:00 AM Laboratory - Chemistry Order CBC BLOOD (LAV-BLOOD) [facility] Social History: Smoking Status (Most current) and Tobacco Use (All prior to encounter date) This section includes the most current, and the historical, smoking and tobacco- related health factors from the ID facility where the Encounter took place. Current Smoking Status This section includes the most current smoking, or tobacco-related health factor, from the ID facility where the Encounter took place. Date/Time Current Smoking Status Comment Facil ity May 10, 2024 08:30 AM VA-TOBACCO FORMER USER [facility] Tobacco Use History This section includes a history of the smoking, or tobacco-related health factors, that were collected on or before the date of the Encounter. The data comes from the ID facility where the Encounter took place. Date/Time Smoking Status/Tobacco Use Comment F acility May 10, 2024 08:30 AM ID-TOBACCO QUIT 15 YRS OR MORE [facility] Mar 30, 2023 08:17 AM VA-TOBACCO FORMER USER [facility] Mar 30, 2023 08:17 AM ID-TOBACCO QUIT 15 YRS OR MORE [facility] Radiology Reports: +/- 30 days of [...] the Encounter. The data comes from all ID treatment facilities. Date/Time Radiology Report Provider Source Nov 08, 2024 10:19 AM HIP 2-3 VIEWS(LEFT ) WITH OR WITHOUT PELVIS: ROQUE MONTERO [id number] -1955 M Exm Date: NOV 08, 2024@10:19 Req Phys: MELONIE KITCHEN Loc: CWM/NO/PACT 7 (Req'g Loc) Img Loc: [facility] 1 Service: Unknown [facility] JOÃONYLA [id number] (Case [id number] COMPLETE) HIP 2-3 VIEWS(LEFT) WITH OR WITHO(RAD Detailed) CPT:47855 CPT Modifiers : LT LEFT SIDE Reason for Study: pain Clinical History: Covering resident, fellow, BIOPROCESS DEVELOPMENT ENGINEER or attending: Imtiaz TRAN Pager: teams Backup pager: History: 2 week onset unprovoked pain Report Status: Verified Date Reported: NOV 08, 2024 Date Verified: NOV 08, 2024 Gaming Dealer E-Sig:/ES/THAO URIBE JR Report: Study: AP view [...] Primary Interpreting Staff: THAO URIBE JR, Radiologist (Gaming Dealer) /THAO GRAHAM JR [facility] Encounter Notes: All associated encounter notes This section contains the clinical notes associated to the Encounter. Date/Time Encounter Note(s) Provider Source Nov 28, 2024 09:23 AM ADMINISTRATIVE NOTE: LOCAL TITLE: ADMINISTRATIVE NOTE STANDARD TITLE: ADMINISTRATIVE NOTE DATE OF NOTE: NOV 28, 2024@09:23 ENTRY DATE: NOV 28, 2024@09:23:53 AUTHOR: NED TOMAS EXP COSIGNER: URGENCY: STATUS: COMPLETED ADMINISTRATIVE NOTE Has ADDENDA RECEIVED CALL FROM [facility] REQUESTING A NEW UROLOGY CONSULT APPT--11/28/2024 @ 2:45PM [facility]-----[address] [facility] [address] [phone] TAX ID #[id number] WINDY HESTER #[id number] JOSE#[id number] NPI#---[id number] MEDICAL RECORDS FAX# [phone] IF PCP AGREES PLEASE ENTER NEW CONSULT /malissa/ NED MUNOZ Signed: 11/28/2024 09:24 Receipt Acknowledged By: 11/30/2024 07:38 /malissa/ Melonie J Kitchen DNP, ASSET MANAGER-BC, CNL Primary Care Nurse Practitioner 11/28/2024 09:58 /malissa/ Deena Ventura MSN RN CNL Primary Care RN 11/28/2024 ADDENDUM STATUS: COMPLETED Consult entered HFS by PCP /malissa/ Deena Ventura MSN RN CNL Primary Care RN Signed: 11/28/2024 09:58 NED TOMAS [facility] [place] [facility]
--- OUTSIDE RECORDS SUMMARY | 2024-12-20 08:18 | XMS_ITS ---
Author Name [facility] of [facility] ([place]) Organization [facility] [place] Address [address] [place] [address] Care Team Providers Care Medical Assistant Supervisor Name Role Phone MELONIE LOERA Primary Care Provider [facility] Insurance Providers: All historical and [...] PART A Jul 04, 2019 PART A [id number] ROQUE MONTERO PATIENT Selected Encounter This section includes the information on record at [place] for the Encounter. Date/Time Encounter Type Encounter Description Reason Provider Source May 11, 2024 02:30 PM COMPRE OPH EXAM EST PT 1/> OPTOMETRY ICD-10-CM H35.3131 Nexdtve age-related mclr degn, bilateral, early dry stage MERHAR,HUBER B IHE Encounter Template Text not used by VA Assessments - Encounter Diagnoses This section includes the primary and secondary diagnoses documented for the Encounter. Date/Time Primary/Secondary Diagnosis Diagnosis Name Provider Source May 11, 2024 02:53 PM PRIMARY Nexdtve age-related mclr degn, bilateral, early dry stage MERHAR,HUBER B [place] [facility] May 11, 2024 02:53 PM SECONDARY Age-related nuclear cataract, bilateral MERHAR,HUBER B [place] [facility] May 11, 2024 02:53 PM SECONDARY Hypermetropia, bilateral MERHAR,HUBER B [facility] Plan of Treatment: Future Appointments (+ 6 months) and Future Tests (+/- 45 days) The Plan of Treatment section includes [facility] care [facility] [place] [facility] This section includes future appointments and future orders which are active, pending or scheduled. Future Appointments This section includes appointments that were scheduled to occur 6 months from the date of the Encounter, up to a maximum of 20 appointments. The data comes from all [place] treatment facilities. Appointment Date/Time Appointment Type Appointme nt Facility Name Jun 22, 2024 01:00 PM [facility] Jul 10, 2024 10:00 AM [facility] Nov 08, 2024 10:00 AM AMBULATORY MEDICINE [facility] Social History: Smoking Status (Most current) [...] took place. Date/Time Current Smoking Status Comment Bert ity May 10, 2024 08:30 AM IN-TOBACCO FORMER USER [facility] Tobacco Use History This section includes a history of the smoking, or tobacco-related health factors, that were collected on or before the date of the Encounter. The data comes from the [place] facility where the Encounter took place. Date/Time Smoking Status/Tobacco Use Comment F acility May 10, 2024 08:30 AM IN-TOBACCO QUIT 15 YRS OR [facility] Mar 30, 2023 08:17 AM VA-TOBACCO [facility] Mar 30, 2023 08:17 AM IN-TOBACCO QUIT 15 YRS OR MORE [facility] Radiology Reports: +/- 30 days of the [...] the Encounter. The data comes from all [place] treatment facilities. Date/Time Radiology Report Provider Source May 10, 2024 08:38 AM KNEE 3 VIEWS (LEFT ): ROQUE MONTERO [id number] -1955 M Exm Date: MAY 10, 2024@08:38 Req Phys: MELONIE LOERA Loc: CWM/NO/PACT 7 (Req'g Loc) Img Loc: [facility]BUILDING 1 Service: Unknown [facility] , (Case [id number] COMPLETE) KNEE 3 VIEWS (LEFT) (RAD Detailed) CPT:97671 Proc Modifiers : LEFT Reason for Study: pain Clinical History: Covering resident, fellow, GUIDE DOG INSTRUCTOR or attending: Imtiaz TRAN Pager: teams Backup pager: History: worsening pain Report Status: Verified Date Reported: MAY 10, 2024 Date Verified: MAY 10, 2024 Senior Quality Methods Specialist E-Sig:/ES/THAO URIBE JR Report: Study: AP weight-bearing [...] Primary Interpreting Staff: THAO URIBE JR, Radiologist (Senior Quality Methods Specialist) /THAO GRAHAM JR [facility] Encounter Notes: All associated encounter notes This section contains the clinical notes associated to the Encounter. Date/Time Encounter Note(s) Provider Source May 11, 2024 02:30 PM OPTOMETRY NOTE: LOCAL TITLE: OPTOMETRY NOTE STANDARD TITLE: OPTOMETRY NOTE DATE OF NOTE: MAY 11, 2024@14:30 ENTRY DATE: MAY 11, 2024@14:30:26 AUTHOR: HUBER VANESSA EXP COSIGNER: URGENCY: STATUS: COMPLETED 68 WHITE MALE NOT OR Last eye exam: 05/05/23 Reason for Visit/CC: patient here for a comprehensive eye exam. He reports no changes in vision OHx: early dry AMD OU cataract OU (-) Pain: (-) BENSON: (-) Diplopia: (-) Flashes: (-) Floaters: (-) Amaurosis Fugax/Tia's: (-) Eye Injury: (-) Eye Surgery: (-) TBI (-) FOHx: MHx: Code Description R35.1 Nocturia ([facility] [id number]) Z77.29 Exposure to potentially hazardous substance ([facility] [id number]) M25.561 Pain of bilateral knee regions ([facility] [id number]) K40.21 Inguinal hernia ([facility] [id number]) D07.5 Carcinoma of prostate ([facility] [id number]) E66.9 Obesity ([facility] [id number]) R69. History of herpes zoster ([facility] [id number]) Other: SYSTEMIC MEDICATIONS/OCULAR MEDICATIONS: Active and Recently Outpatient Medications (excluding Supplies): Active Outpatient Medications Status 1) SOLIFENACIN SUCCINATE 10MG TAB TAKE ONE TABLET BY ACTIVE MOUTH ONCE DAILY 2) VIBEGRON 75MG TAB TAKE ONE TABLET BY MOUTH ONCE DAILY HOLD EVERY EVENING Active Non-VA Medications Status 1) Non-VA MULTIVITAMIN/MINERALS CAP/TAB 1 TABLET BY ACTIVE MOUTH ONCE DAILY 3 Total Medications ALLERGIES: Patient has answered NKA LAST BP: 137/85 (05/10/2024 08:17) PERTINENT LABS: HEMOGLOBIN A1C; BLOOD Alexandra. Date: 07/14/23 10:23 Test Name Result Units Range HEMOGLOBIN A1C 5.6 % 4.0 - 5.6 +++++++++++++++++++++++++++ +++++++++++++++++++++++++++ +++++++++++++++++++++++++ Patient history, visual acuity, entrance testing, refraction and tonometry all performed now by instrumentation technician and reviewed by attending provider. Dilation drops instilled by instrumentation technician after angle assessment and dilation warning given with verbal consent obtained. +++++++++++++++++++++++++++ +++++++++++++++++++++++++++ +++++++++++++++++++++++++ Final Rx: no change OD: +2.25 -0.25 x 075 OS: +2.00 -0.25 x 090 ADD +2.50 SLE: Lids/Lashes: clear OU Conjunctiva: white and quiet OU Corneas: clear OU Iris: flat and clear OU Anterior Chamber: deep and quiet OU Angles: open OU Lens: 1+ NS OU DFE: Vitreous: Syneresis OU C/D (Size and Rim Description) OD 0.20 pink & healthy OS 0.20 pink & healthy Macula OD flat, tr hard drusen OS flat, tr hard drusen (-)hemorrhage/fluid OU A/V: normal caliber OU Posterior Pole: clear OU Periphery: Flat and intact (-)holes, tears, detachments 360 OU Assessment/Plan: 1. 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 AREDS not indicated at this time. Pt ed on findings. Monitor annually 2. Nuclear sclerosis cataracts OU, not visually significant. Monitor 3. hyperopia OU, presbyopia OU - order new PALs clear and sun RTC 1 year or earlier PRN Patient Education: Macular Degeneration: Patient was educated regarding macular degeneration including both wet and dry varieties as well as the natural history and prognosis of this condition. Education included the role of amsler grid testing , ocular nutraceutical therapy as well as diet and healthy lifestyle choices when applicable. Exclusion criteria includes extremely reduced acuity or cognitive decline for amsler grid testing and other coexisting systemic contraindication for supplements, diet and exercise. patient offered and declined printed medication list Medication Reconciliation: Outpatient: Has the patient been taking medications as documented in the EMLR? YES: The patient has been taking medications as documented in the EMLR. Essential Medication List for Review used to complete this medication reconciliation. INCLUDED IN THIS LIST: Alphabetical list of active outpatient prescriptions dispensed from this VA (local) and dispensed from another [place] or [facility] facility (remote) as well as inpatient orders [...] whether with a VA or non-VA provider. JLV Link Data on this list may not be complete. Please check [facility] RX. Allergies/ADRs (Tool #5) FACILITY ALLERGY/ADR -------- No Remote Allergy/ADR Data available for this patient [place] [facility] No Known Allergies Med [facility] (Tool #1) INCLUDED IN THIS LIST: Alphabetical list of active outpatient prescriptions dispensed from this VA (local) and dispensed from another [place] or [facility] facility (remote) as well as inpatient orders (local pending and active), local clinic medications, locally documented non-VA medications, and local prescriptions that have or been discontinued in the past 90 days. Non-VA Meds Last Documented On: May 03, 2019 NOTE The display of VA prescriptions dispensed from another [place] or [facility] facility (remote) is limited to active outpatient prescription entries matched to National Drug File at the originating site and may not include some items such as investigational drugs, compounds, etc. NOT INCLUDED IN THIS LIST: Medications self-entered by the patient into personal health records (i.e. [facility]SmallWorld) are NOT included in this list. Non-VA medications documented outside this [place], remote inpatient orders (regardless of status) and remote clinic medications are NOT included in this list. The patient and provider must always discuss medications the patient is taking, regardless of where the medication was dispensed or obtained. Non-VA MULTIVITAMIN/MINERALS CAP/TAB TAKE ONE TABLET BY MOUTH ONCE DAILY Medication prescribed by Non-VA provider. OUTPT SOLIFENACIN SUCCINATE 10MG TAB (Status = Active) TAKE ONE TABLET BY MOUTH ONCE DAILY Rx# [id number] Last Released: 04/21/24 Qty/Days Supply: Rx Expiration Date: 04/20/25 Refills Remainin OUTPT VIBEGRON 75MG TAB (Status = On Hold) TAKE ONE TABLET BY MOUTH ONCE DAILY EVERY EVENING Rx# [id number] Last Released: Qty/Days Supply: Rx Expiration Date: 04/04/25 Refills Remainin Indication: FOR OVERACTIVE BLADDER SUPPLIES /malissa/ HUBER VANESSA OD Swinging Cut Off Saw Operator Signed: 05/11/2024 14:53 HUBER VANESSA IN [facility] [place] [facility] May 11, 2024 09:09 AM OPTOMETRY ANALYTICAL LAB ANALYST NOTE: LOCAL TITLE: OPTOMETRY ANALYTICAL LAB ANALYST NOTE STANDARD TITLE: OPTOMETRY ANALYTICAL LAB ANALYST NOTE DATE OF NOTE: MAY 11, 2024@09:09 ENTRY DATE: MAY 11, 2024@09:09:15 AUTHOR: NHAN WEEKS COSIGNER: URGENCY: STATUS: COMPLETED Active problems - Computerized Problem List is the source for the followin. Nocturia 2. Exposure to potentially hazardous substance 3. Pain of bilateral knee regions 4. Inguinal hernia 5. Carcinoma of prostate 6. Obesity 7. History of herpes zoster Active Outpatient Medications (including Supplies): Active Outpatient Medications Status 1) SOLIFENACIN SUCCINATE 10MG TAB TAKE ONE TABLET BY ACTIVE MOUTH ONCE DAILY 2) VIBEGRON 75MG TAB TAKE ONE TABLET BY MOUTH ONCE DAILY HOLD EVERY EVENING Active Non-VA Medications Status 1) Non-VA MULTIVITAMIN/MINERALS CAP/TAB 1 TABLET BY ACTIVE MOUTH ONCE DAILY 3 Total Medications Allergies: Patient has answered NKA All medications including those prescribed by outside VA's, community providers, and all OTC meds were reviewed and reconciled with patient to the best of their abilities. This 68 year old MALE is seen today for Medical, eye, personal, and social history are all reviewed and is contributory or is not contributory to today's visit. Optometry Boiler Setter Attending Provider Note: Date of Last Exam:05/05/2023 Location: [facility] Chief Complaint:Glasses (from [facility]) still working well.No real eye cpmplaints. HISTORY AND REVIEW OF SYSTEMS: OHX: +ARMD dry OU +CATARACT OU incipient +REFRACTIVE ERROR OU (-) Pain: (-) BENSON: (-) Diplopia: (-) Flashes: (-) Floaters: (-) Amaurosis Fugax/Tia's: (-) Eye Injury: (-) Eye Surgery: (-) TBI (-) FOHx: (-) Smoker/Length of Time: DIABEIC: No LAST A1C: Collection time: 2023@10:23 Test Name Result Units Range --------- ------ ----- ----- HEMOGLOBIN A1C 5.6 % 4.0 - 5.6 PERTINENT LABS: HEMOGLOBIN A1C TREND Collection DT Spec HGBA1c 2023 10:23 BLOOD 5.6 NEW ALLERGIES TO REPORT: No EYE MEDICATION(S):AREDS2 once per day (gets at [facility] through ) CURRENT RX WITH BCVA: OD: +2.25 -0.25 x 075 20/20 OS: +2.00 -0.25 x 090 20/20 ADD +2.50 DVA: ( )SC ( )CC (X)Phoropter ( )CL OD: 20/15 OS: 20/15 NVA OU: 20/20 MANIFEST REFRACTION(MRx): OD:no change 20/15 OS:no change 20/15 ADD:+2.50 OU 20/20 CVF: Appear FTFC OU EOMS: Appear Full OU PUPILS: Appear ERRL(-)APD INTRAOCULAR PRESSURE (IOP) METHOD: Goldmann Time:2:27 OD:14 OS:14 ANTERIOR CHAMBER (AC): Penlight or slit lamp (if available) exam appears unremarkable. Pupils are dilated. Dilation and driving precautions reviewed with patient and patient expresses understanding. Medication: 1% Tropicamide, 2.5% Phenylephrine OU Time:2:29 Visual Imaging Performed Today:none Additional Comments: /malissa/ NHAN WEEKS OPTOMETRY TECH Signed: 05/11/2024 14:29 NHAN WEEKS IN [facility] [facility]
--- OUTSIDE RECORDS SUMMARY | 2024-12-20 08:18 | XMS_ITS ---
Author Name [facility] Organization Unknown Care Team Organization Name Specialty Phone Email Start Date End Da te [employer] Insurance 01/21/2022 0 05/22/2024
--- OUTSIDE RECORDS SUMMARY | 2024-12-20 08:18 | XMS_ITS | Encounter Summary ---
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 Date/Time Encounter Type Encounter Description Reason Provider Source Dec 18, 2024 01:00 PM THERAPEUTIC EXERCISES PHYSICAL THERAPY ICD-10-CM M25.552 Pain in left hip CHONG PHILLIPS [facility] Encounter Template Text not used by [place] Assessments - Encounter Diagnoses This section includes the primary and secondary diagnoses documented for the Encounter. Date/Time Primary/Secondary Diagnosis Diagnosis Name Provider Source Dec 18, 2024 02:24 PM PRIMARY Pain in left hip CHONG PHILLIPS [facility] Plan of Treatment: Future Appointments (+ 6 months) and Future Tests (+/- 45 days) The Plan of Treatment section includes future care activities for the patient from all [place] treatmentfacilities. This section includes future appointments and future orders which are active, pending or scheduled. Future Appointments This section includes appointments that were scheduled to occur 6 months from the date of the Encounter, up to a maximum of 20 appointments. The data comes from all [place] treatment facilities. Appointment Date/Time Appointment Type Appointme nt Facility Name Dec 20, 2024 08:45 AM AMBULATORY - MEDICINE [place] [facility] [place] [facility] Jan 01, 2025 02:00 PM [facility] [place] [facility] Jan 08, 2025 10:00 AM AMBULATORY - MEDICINE [place] [facility] [place] [facility] Jan 15, 2025 01:00 PM AMBULATORY - [facility] MEDICIN [facility] [place] [facility] Jan 29, 2025 01:00 PM AMBULATORY - [facility]HAB MEDICIN [facility] [place] [facility] February 05, 2025 02:00 PM AMBULATORY - [facility]ICIN [facility] [place] [facility] May 14, 2025 02:00 PM [facility] Active, Pending, and Scheduled Orders This section includes a listing of several types of active, pending, and scheduled orders, including clinic medications orders, diagnostic test orders, procedure orders and consult orders; where the start date of the order is 45 days before the date of the Encounter or 45 days after the date of theEncounter. The data comes from all [facility]. Test Date/Time Test Type Test Details Facility Name Nov 29, 2024 09:57 AM Consult Order COMMUNITY CARE-UROLOGY Cons [facility] Dec 06, 2024 12:00 AM Laboratory - Chemistry Order HEMOGLOBIN A1C PANEL BLOOD (LAV-BLOOD) [facility] Dec 06, 2024 12:00 AM Laboratory - Chemistry Order PSA BLOOD (SST-SERUM) [facility] Dec 06, 2024 12:00 AM Laboratory - Chemistry Order BASIC METABOLIC PANEL (non-fasting) BLOOD (SST-SERUM) [facility] Dec 06, 2024 12:00 AM Laboratory - Chemistry Order LIPID PANEL, NON FASTING BLOOD (SST-SERUM) [facility] Dec 06, 2024 12:00 AM Laboratory - Chemistry Order LIVER FUNCTION BLOOD (SST-SERUM) [facility] Dec 06, 2024 12:00 AM Laboratory - Chemistry Order CBC BLOOD (LAV-BLOOD) [facility] Social History: Smoking Status (Most current) and Tobacco Use (All prior to encounter date) This section includes the most current, and the historical, smoking and tobacco- related health factors from the [place] facility where the Encounter took place. Current Smoking Status This section includes the most current smoking, or tobacco-related health factor, from the [place] facility where the Encounter took place. Date/Time Current Smoking Status Comment Facil ity May 10, 2024 08:30 AM [place]-TOBACCO FORMER USER [facility] Tobacco Use History This section includes a history of the smoking, or tobacco-related health factors, that were collected on or before the date of the Encounter. The data comes from the [place] facility where the Encounter took place. Date/Time Smoking Status/Tobacco Use Comment F acility May 10, 2024 08:30 AM [place]-TOBACCO QUIT 15 YRS OR MORE [facility] Mar 30, 2023 08:17 AM [place]-TOBACCO FORMER USER [facility] Mar 30, 2023 08:17 AM [place]-TOBACCO QUIT 15 YRS OR MORE [facility] Encounter Notes: All associated encounter notes This section contains the clinical notes associated to the Encounter. Date/Time Encounter Note(s) Provider Source Dec 18, 2024 07:51 AM PHYSICAL THERAPY C ONSULT: LOCAL TITLE: PHYSICAL THERAPY CONSULT STANDARD TITLE: PHYSICAL THERAPY CONSULT DATE OF NOTE: DEC 18, 2024@07:51 ENTRY DATE: DEC 18, 2024@07:51:35 AUTHOR: CHONG PHILLIPS COSIGNER: URGENCY: STATUS: COMPLETED Initial Evaluation date: Dec Treatment #: eval Treatment time: 60min Diagnosis: Pain in left Hip(ICD-10-CM M25.552) Provider: LUZ MARIA KING Treatment Precautions: Patient identified by full name and date of Verbal Consent given for therapist to put hands on patient SUBJECTIVE left hip pain, unprovoked, onset later October 2024. I was sleeping on an older mattress and then I realized the left hip mybe the pain was coming from the mattress, bought pillow topper and the pain is much improved. Still feel it from time to time, espsically on days like today with rainy weather. I am a side sleeper and usually on the left side. I can't lay on he right side due to gastritis, acid reflux if on the right side. I did stop drinking coffee and that has helped this as well. used to do martial arts for about 25 years and I was able to do the splits we fly back and forth to [facility] a couple times a year and hips don't love that. I have the feet swell up pretty big by the end of the flight (talked foot pump, compression stockings and walking. bilateral knee pain-osteobiflex supplement has been helping the pain. PMH: Chief complaint/ailment/injury: WINSTON/Date of onset: ( x ) Gradual back in October ( ) Rapid Since onset: ( ) Worsening ( ) Improving ( x ) Staying the same Are your symptoms: ( ) Constant ( x ) Intermittent Prior PT care for this condition? ( x ) No ( ) Yes Previous Medical Interventions: ( x ) Xray ( ) MRI/CTscan ( ) Injections ( ) Other: C/O: ( x ) Pain: ( ) ROM: ( x ) Strength: ( ) Sensation: Pain rating on 0-10 VNS: Current: 3/10 Average: 3/10 At best: 0/10 At worst: 7/10- getting up from siiting for extended periods Location: just posterior to the GT Description of pain: ( x )aching - deep ache ( )throbbing ( )sharp ( )shooting ( )stabbing ( )burning ( )cramping Alleviating factors:sitting resting, gets better as I am walking ( ) Position: Aggravating factors:getting up from sitting, laying on it. Are you currently working? 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 Walk a bunch for work Baseline function: [x]Independent ADL's/IADL's - Decline in ADL's/IADL's or recreation?: [x]Yes - slower when flared up. Patient's Goals: 1)ways to manage the hip issue. 2) Active problems - Computerized Problem List is the source for the followin. Osteoarthritis of hip 2. Nocturia 3. Exposure to potentially hazardous substance 4. Pain of bilateral knee regions 5. Inguinal hernia 6. Carcinoma of prostate 7. Obesity 8. History of herpes zoster Include data from 12/19/2023 to 12/18/2024 12/18/2024 07:52 CONFIDENTIAL IMAGING REPORTS SUMMARY pg. 1 RIKKIMIROSLAVAROQUE GREG [id number] : 1955 II - Imaging Impression (max 1 occurrence) Date Procedure CPT Status Case # 11/08/2024 HIP 2-3 VIEWS([place] [id number] Verified 261 WITHOUT PELVIS There are mild degenerative osteoarthritic changes present to the left hip joint space. The pelvic bones are intact. No suspicious bone lesions are identified. No acute bony abnormality is seen. No acute bony abnormality with mild degenerative changes of the left hip, as described above. Medical Screening Questionnaire/RED FLAGS: []Recent Trauma [x]Age (50+) [x]Hx of Cancer- prostate []Fever/chills/night sweats []Unexplained weight loss []Recent infection []Immunosuppression []Night pain []Saddle anesthesia []Bowel/bladder dysfunction retention/frequency []LE neurological deficit OBJECTIVE: Posture: Gait: trendelenberg gait left hip crashing into the right foot. Lumbar Posture: WNLs:__x_ Increased Lordosis ____ Decreased Lordosis ____ Lateral Shift : Yes: (Direction:___) No__x_ Pelvic Symmetry: ASIS:= PSIS:= Iliac Crest:= Functional Mobility:I Palpation: TTP just posterior to the left GT. Lumbar AROM: WFL Neurological: Deep Tendon Reflexes: 1. Quadriceps (L3): L: 2 R:2 2. Achilles (L5-S1): L: 2 R:2 Resisted Tests: (_/5) Trunk Flexion : :4 Trunk Extension : :4 Trunk Rotation : L:4 R:4 Hip Flexion (L2-L4): L:4P R:4- Hip Abduction (L5-S1): L:3+ R:4- Hip Adduction: L:4 R:4 Hip Internal Rotation : L:4 R:4 Hip External Rotation : L:4- R:4 Hip Extension(L5-S2): L:4- R:4- Knee Extension(L2-L4): L:4 R:4 Knee Flexion: L:4 R:4 Ankle Dorsiflexion(L4): L:4 R:4 Ankle Plantarflexion (S1-2) L:4 R:4 Ankle Eversion (S1): L:4 R:4 Great Toe Extension(L5): L:4 R:4 Range of Motion: Hip WFL Muscle Length/Flexibility: Jamie Test: Left: Normal Limited__mod___ Right: Normal Limited___mod Maria Dolores's Test: Left: Normal Limited__mod___ Right: Normal Limited___mod Hamstring (90-90): Left: Normal Limited__25___ Degrees Right: Normal Limited__25 Degrees Piriformis Test: Left: Normal Limited__mod___ Right: Normal Limited___mod Lumbar Special Tests Straight Leg Raise (sn=0.91):- Crossed Straight Leg Raise (sp=0.88):- Sidelying FAIR5 (for piriformis syndrome) (sn=0.88 sp=0.83):- Slump Test (sn=0.84 sp=0.83):- Pelvic Special Tests ROSIE:- Hip Special tests: Scour SLight pain left hip + Trendelenburg + Treatment Provided: Patient education was provided for all aspects of care during this clinical encounter. THERAPEUTIC EXERCISE: MINUTES:24 Instruction in therex & issued [employer] HEP:Access Code: [email or web address] URL: [email or web address] Date: 12/18/2024 Prepared by: Chong Phillips Exercises - Supine Piriformis Stretch with Foot on Ground - 2 x daily - 3 sets - 30 secs hold - Supine Figure 4 Piriformis Stretch - 2 x daily - 3 sets - 30 secs hold - Supine Figure 4 Piriformis Stretch - 2 x daily - 3 sets - 30 secs hold - Quadriceps Stretch with Chair - 2 x daily - 3 sets - 30 secs hold - Seated Hamstring Stretch - 2 x daily - 3 sets - 30 secs hold - Seated Hip Adductor Stretch - 2 x daily - 3 sets - 30 secs hold - Supine March - 1-2 x daily - 20-30 reps - Supine Lower Trunk Rotation - 1-2 x daily - 20-30 reps MANUAL THERAPY: MINUTES:2 LAD no change in pain levels Assessment:Patient presents to Physical Therapy today with reports left hip stiffness and pain, primarily located just posterior to the GT. The patient noted that the pain has overall decreased since changing sleeping surface with softer pillow top cover. The patient continues to have pain though it has improved. The patient will benefit from skilled PT to address flexibility deficits and improve strength for better pelvic stability, overall to improve QOL. Physical Therapy Problem List [x]Increased Pain [x]Decreased ADL's/IADL's [x]Impaired gait & mobility []Impaired balance [x]Reduced muscle performance/strength [x]Decreased soft tissue mobility/flexibility []Decreased ROM [x]Impaired joint mobility/integrity [x]Postural deficits [x]Knowledge deficit for home exercises Rehab Potential: []Good [x]Fair []Poor potential Barriers: chronicity of symptoms, multiple comorbidities Goals, within: []2-4 wks [x]4-6wks []8wks [x]Pt will report a decrease in pain to < 3/10 upon standing and intiating walking to improve QOL. [x] Patient will improve overall hip strength to 4/5 on mmt for improved quality of gait. [x]Pt will increase supine 90/90 by 10-20 degrees to demonstrate increase ixn HS length. [x]Pt will decrease prone passive knee flexion restriction to demonstrate improved hip flexor/quad length to minimal restriction. [x]Pt will be independent with HEP for increased LE flexibility and optimal progress with PT. PLAN: Pt to be seen 1x/ 2weeks for 4-6 sessions POC to include: [x]Low impact cardio: []Nustep []Recumbent bike [x]Recumbent elliptical []TM [x]Manual: [x]STM/DTM []METs/SCS []IASTM []Joint mobilizations [x]Therex: [x]Progressive Core [x]Progressive LQ [x]Lumbar flex [x]LQ flex [x]Education: [x]Posture [x]Bodymechanics [x]Modalities(PRN): [x]Heat/Ice [x]Biofreeze {Can not do [place] due to prescreen requirement.} Next 3 sessions: Continue to target hip/LE flexibility with updates to HEP as ready. Teach core brace and add hip flexor stretch, QL stretch, gluteal stretch, likely benefit from calf stretch as well. As able begin intruducing core/pelvic stab rx to include bridges, clams, hip add iso, hip abd. Combo movements as able. Longer duration holds advised vs higher rep counts for strength. /malissa/ CHONG PHILLIPS PT, DPT PHYSICAL THERAPIST Signed: 12/18/2024 14:24 CHONG PHILLIPS [facility] [place] [facility]
--- OUTSIDE RECORDS SUMMARY | 2024-12-20 08:19 | XMS_ITS | Patient Health Record ---
Author Organization [facility] Address [address] [place] [address] Care Team Providers Care Home Builder Name Role Phone Imtiaz REMY, Gulshan Primary Care Provider Toby Lake Jr Unavailable Allergies No Known Allergies Reason For Referral Referring Provider First Name Gulshan Referring Provider Last Name Itmiaz Referred Organization [facility] Referred Provider Toby Martínez Jr Referred Address [address],[place], [place],[address], Referred Provider Specialty Gastroentero logy General Notes Charlotte Carrington 024 04:05:25 PM EDT > requested [facility] for visit with Dr. Martínez on 02-14-2024, Charlotte Carrington 01/27/2024 03:09:53 PM EDT > [facility]XED REQUEST TO THE [facility] AGA[facility] Referral Priority Routine Medications Medication SIG (Take, Route, Frequency, Duration) Notes Start Date End Date Status MiraLax (colon prep) 17 GM/SCOOP mixed with Gatorade or Crystal Light Orally begin at 5:00 p.m. the day before the procedure for 1 day 02/14/2024 Active Immunizations Vaccine Route Administration Date Status Comme nts Influenza Unknown 08/24/2023 Administered Social History Tobacco Use: Social History Observation Description Date Details (start date - stop date) Never Smoker NA - NA Tobacco Use/Smoking Question Answer Notes Patient is a nonsmoker Alcohol Screen Question Answer Notes Did you have a drink contain ing alcohol in the past year? Yes How often did you have a dri nk containing alcohol in the past year? Monthly or less (1 point) How many drinks did you have on a typical day when you were drinking in the past year? 1 or 2 drinks (0 point) How often did you have 6 or more drinks on one occasion in the past year? Never (0 point) Points 1 Interpretation Negative Problems Problem Type SNOMED Code ICD Code Onset Dates Problem Status W/U Status Risk Notes Problem 638935119 Colon cancer screening (Z12.11) Active confirmed Problem 198457456 Encounter for other preprocedural examination (Z01.818) Active confirmed Problem 950832414 FH: colon cancer (Z80.0) Active confirmed Vital Signs Temperature 98.6 degrees Fahrenheit 02/14/2024 Blood pressure diastolic 00 mm Hg 02/14/2024 Height 5 ft 9 in in 02/14/2024 Blood pressure systolic 000 mm Hg 02/14/2024 Weight 252 lb 6 oz lbs 02/14/2024 BMI 37.27 kg/m2 02/14/2024 Encounters Encounter Location Date Provider Diagnosis [facility] [address], [place] [id number] 03/10/2024 Toby Martínez Jr Encounter for screening colonoscopy Z12.11 and Family history of colon cancer Z80.0 [facility] [address] [place] [address] 02/14/2024 Toby Martínez Jr Colon cancer screening Z12.11 ; Encounter for other preprocedural examination Z01.818 and FH: colon cancer Z80.0 Assessments Encounter Date Diagnosis (ICD Code) Assessment Notes Treatment Notes Treatment Clinical Notes Section Notes 03/10/2024 Encounter for screening colonoscopy (ICD-10 - Z12.11) 03/10/2024 Family history of colon cancer (ICD-10 - Z80.0) 02/14/2024 Colon cancer screening (ICD-10 - Z12.11) Colonoscopy material was printed We discussed colonoscopy today. We discussed risks and benefits of the procedure today. He understands these and agrees to proceed. 02/14/2024 Encounter for other preprocedural examination (ICD-10 - Z01.818) We discussed colonoscopy today. We discussed risks and benefits of the procedure today. He understands these and agrees to proceed. 02/14/2024 FH: colon cancer (ICD-10 - Z80.0) We discussed colonoscopy today. We discussed risks and benefits of the procedure today. He understands these and agrees to proceed. Plan Of Treatment Future Test Test Name Order Date COLONOSCOPY 02/14/2024 Insurance Providers Payer Name Payer Address Payer Phone Subscriber Number Group Number Insured Name Patient Relationship to Insured Coverage Start Date Coverage End Date [employer] [address] [place] [id number] ROQUE MONTERO Self - patient is the insured Medical (General) History Medical History History ICD Code Prostate cancer Osteoarthritis Family history of colon canc er, last colonoscopy approximately 2018, five-year followup Surgical History Surgery Date(Month/Year) Prostatectomy 2019
--- OUTSIDE RECORDS SUMMARY | 2024-12-20 08:19 | XMS_ITS | Continuity of Care Document ---
Author Name [facility] Organization [facility] Care Team Providers Care Whitesmith Name Role Phone [facility] Unavailable Unavailable Problems Combined list of problems from Department of Defense and Veterans Affairs facilities. It does not include entries that were removed or entered in error. Problem Status Onset Date Problem Type Date of Resolution Comments Source Pain of bilateral knee regions Active 10/04/18 80 Condition [facility] Carcinoma of prostate Active Condition May 03, 2019 Entered By: AUGUSTINE FIELDS Comment: 2019 Entered By: AUGUSTINE FIELDS Comment: hx of prostate biopsy 2015 and 2018, prostatectomy 10/19/2019 [facility] Exposure to potentially hazardous substance Active Condition Dec 13, 2023 Entered By: JOSELUIS HIDALGO Comment: Connect Snomed Code to ICD 10 Code refer to note dated 07/14/23 [facility] History of herpes zoster Active Condition [facility] Inguinal hernia Active Condition [facility] Nocturia Active Condition [facility] Obesity Active Condition [facility] Osteoarthritis of hip Active Condition Nov 08, 2024 Entered By: PATRICIA LOERA Comment: see 11/08/2024 xray report LEFT hip [facility] Diagnosis: ICD-10-CM M25.552 Pain in left hip Active Diagnosis [facility] Diagnosis: ICD-10-CM R35.1 Nocturia Active Diagnosis [facility] Diagnosis: ICD-10-CM Z46.0 Encounter for fit/adjst of spectacles and contact lenses Active Diagnosis [facility] Diagnosis: ICD-10-CM H35.3131 Nexdtve age-related mclr degn, bilateral, early dry stage Active Diagnosis [facility] Diagnosis: ICD-10-CM M25.562 Pain in left knee Active Diagnosis [facility] Diagnosis: ICD-10-CM Z04.89 Encounter for examination and observation for oth reasons Active Diagnosis [facility] Diagnosis: ICD-10-CM Z23 Encounter for immunization Active Diagnosis [facility] Medications Combined list of outpatient medications from Department of Defense and Veterans Affairs facilities.Medications provided include 1) outpatient medications from the last 15 months, and 2) patient-reported medications. Medication Details Route Status Patient Instructions Prescription Expires Prescription Number Last Dispense Date Ordering Provider Order Date Order Qty Source MULTIVITAMI NS W/MINERALS TAB TAKE ONE TABLET BY MOUTH ONCE DAILY ORAL ACTIVE LILLIANA BRUSH 2018 [place] SOLIFENACIN SUCCINATE 10MG TAB TAKE ONE TABLET BY MOUTH ONCE DAILY ORAL ACTIVE 04/20/2025 [id number] [place] ODRABIA Knox S 2023 30 [facility] VIBEGRON 75MG TAB TAKE ONE TABLET BY MOUTH ONCE DAILY EVERY EVENING ORAL HOLD 04/04/2025 [id number] 4 [place] ODAbilioCORLI S 2023 30 [facility] Immunizations Combined list of available immunizations from the Department of [facility] and [facility] facilities. Immunization Series Date Given Administered By Site Reaction Lot Number CVX Code Drug Compensation Advisor Status Comments Source COVID-19 (MODERNA), MRNA, LNP-S, PF, 50 MCG/0.5 ML (AGES 12+ YEARS) 4 2023 MORAIMA GARCIA RIGHT DELTO ID [id number] 312 complet ed [facility] INFLUENZA, HIGH-DOSE, TRIVALENT, PF 2023 MORAIMA GARCIA RIGHT DELTO ID [id number] 135 complet ed [facility] PNEUMOCOCCAL CONJUGATE PCV20, POLYSACCHARID E [id number] CONJUGATE, ADJUVANT, PF 2022 DELMAR LEE SSA H RIGHT DELTO ID [id number] 216 complet ed [facility] TDAP 2022 DELMAR LEE SSA H RIGHT DEL[place] ID [id number] 115 complet ed [facility] COVID-19 (MODERNA), MRNA, LNP-S, PF, 50 MCG/0.5 ML (AGES 12+ YEARS) 1 2022 312 complet ed [facility] INFLUENZA, UNSPECIFIED FORMULATION 2022 88 complet ed [facility] INFLUENZA, UNSPECIFIED FORMULATION 2021 88 complet ed [facility] COVID-19 (MODERNA), MRNA, LNP-S, PF, 100 MCG/0.5 ML DOSE 2 2020 207 complet ed MOD; [id number]; 1 [place] COVID-19 (MODERNA), MRNA, LNP-S, PF, 100 MCG/0.5 ML DOSE 1 2020 207 complet ed MOD; [id number]; 1 [place] INFLUENZA, UNSPECIFIED FORMULATION 2019 88 complet ed [facility] ZOSTER RECOMBINANT 2 2019 187 complet ed [place] PNEUMOCOCCAL POLYSACCHARID E PPV23 2019 33 complet ed [place] ZOSTER RECOMBINANT 1 2019 187 complet ed [place] INFLUENZA, SEASONAL, INJECTABLE 2019 141 complet ed [facility] he recieved vaccine here, no flu vaccine recorde [facility] INFLUENZA, SEASONAL, INJECTABLE 2017 141 complet ed [facility] TDAP 2012 115 complet ed [facility] Results Combined list of recent chemistry, hematology and other laboratory results from Department of Defense and Veterans Affairs, ranging from 15 months to all on record, depending upon the facility. Order Name Results Value Reference Range Date Interpretation Specimen Comments Source BASIC METABOLIC PANEL (non-fast ing) UREA NITROGEN [MASS/VOLUM E] IN SERUM OR PLASMA 16 mg/dL 7 - 25 07/10 Specimen Type: SERUM No comment entered. Ordering Provider: JORDANA LOERA Report Released Date/Time: Jun 29, 2024 04:01 PM Reporting Lab: [address] [address] Performing Lab: [address] [address] [facility] BASIC METABOLIC PANEL (non-fast ing) GLUCOSE [MASS/VOLUM E] IN SERUM OR PLASMA 99 mg/dL 65 - 100 07/10 Specimen Type: SERUM No comment entered. Ordering Provider: JORDANA LOERA Report Released Date/Time: Jun 29, 2024 04:01 PM Reporting Lab: [address] [address] Performing Lab: [address] [address] [facility] BASIC METABOLIC PANEL (non-fast ing) SODIUM [MOLES/VOLU ME] IN SERUM OR PLASMA 139 mmol/L 135 - 145 07/10 Specimen Type: SERUM No comment entered. Ordering Provider: JORDANA LOERA Report Released Date/Time: Jun 29, 2024 04:01 PM Reporting Lab: [address] [address] Performing Lab: [address] [address] [facility] BASIC METABOLIC PANEL (non-fast ing) POTASSIUM [MOLES/VOLU ME] IN SERUM OR PLASMA 4.7 mmol/L 3.5 - 5.0 07/10 Specimen Type: SERUM No comment entered. Ordering Provider: JORDANA LOERA Report Released Date/Time: Jun 29, 2024 04:01 PM Reporting Lab: [address] [address] Performing [facility]: [facility] [address] [facility] [address] [facility] BASIC METABOLIC PANEL (non-fast ing) CHLORIDE [MOLES/VOLU ME] IN SERUM OR PLASMA 106 mmol/L 100 - 110 07/10 Specimen Type: SERUM No comment entered. Ordering Provider: JORDANA LOERA Report Released Date/Time: Jun 29, 2024 04:01 PM Reporting Lab: [facility] [address] [facility] [address] Performing Lab: [facility] [address] [facility] [address] [facility] BASIC METABOLIC PANEL (non-fast ing) CARBON DIOXIDE, TOTAL [MOLES/VOLU ME] IN SERUM OR PLASMA 25 meq/L 20 - 30 07/10 Specimen Type: SERUM No comment entered. Ordering Provider: JORDANA LOERA Report Released Date/Time: Jun 29, 2024 04:01 PM Reporting Lab: [address] [address] Performing Lab: [facility] [address] [facility] [address] [facility] BASIC METABOLIC PANEL (non-fast ing) CREATININE [MASS/VOLUM E] IN SERUM OR PLASMA 1.06 mg/dL 0.50 - 1.40 07/10 Specimen Type: SERUM No comment entered. Ordering Provider: JORDANA LOERA Report Released Date/Time: Jun 29, 2024 04:01 PM Reporting Lab: [facility] [address] [facility] [address] Performing Lab: [address] [address] [facility] BASIC METABOLIC PANEL (non-fast ing) GLOMERULAR FILTRATION RATE/1.73 SQ M.PREDICTED [VOLUME RATE/AREA] IN SERUM, PLASMA OR BLOOD BY CREATININE- BASED FORMULA (CKD-EPI 2020) 75 mL/min 60 07/10 Specimen Type: SERUM No comment entered. Ordering Provider: JORDANA LOERA Report Released Date/Time: Jun 29, 2024 04:01 PM Reporting Lab: [facility] [address] [facility] [address] Performing Lab: [facility] [facility] [address] [facility] [address] [facility] CBC LEUKOCYTES [#/VOLUME] IN BLOOD BY AUTOMATED COUNT 6.06 10*3/u L 4.50 - 11.00 07/10 Specimen Type: BLOOD No comment entered. Ordering Provider: JORDANA LOERA Report Released Date/Time: Jun 29, 2024 04:01 PM Reporting Lab: [facility] [address] [facility] [address] Performing Lab: [facility] [address] [address] [facility] CBC ERYTHROCYTE S [#/VOLUME] IN BLOOD BY AUTOMATED COUNT 4.58 10*6/u L 4.23 - 5.66 07/10 Specimen Type: BLOOD No comment entered. Ordering Provider: JORDANA LOERA Report Released Date/Time: Jun 29, 2024 04:01 PM Reporting Lab: [facility] [address] [address] Performing Lab: [facility] [address] [facility] [address] [facility] CBC HEMOGLOBIN [MASS/VOLUM E] IN BLOOD 14.5 g/dL 12.8 - 17 07/10 Specimen Type: BLOOD No comment entered. Ordering Provider: JORDANA LOERA Report Released Date/Time: Jun 29, 2024 04:01 PM Reporting Lab: [facility] [address] [address] Performing Lab: [facility] [address] [address] [facility] CBC HEMATOCRIT [VOLUME FRACTION] OF BLOOD BY AUTOMATED COUNT 41.6 39.2 - 50.4 07/10 Specimen Type: BLOOD No comment entered. Ordering Provider: JORDANA LOERA Report Released Date/Time: Jun 29, 2024 04:01 PM Reporting Lab: [facility] [place] [facility] [address] [facility] [address] Performing Lab: [facility] [place] [facility] [address] [facility] [address] [facility] [place] [facility] CBC MCV [ENTITIC VOLUME] BY AUTOMATED COUNT 90.8 fL 82 - 99 07/10 Specimen Type: BLOOD No comment entered. Ordering Provider: JORDANA LOERA Report Released Date/Time: Jun 29, 2024 04:01 PM Reporting Lab: [facility] [place] [address] [address] Performing Lab: [facility] [place] [address] [address] [facility] [place] [facility] CBC MCHC [MASS/VOLUM E] BY AUTOMATED COUNT 34.9 g/dL 30.8 - 35.1 07/10 Specimen Type: BLOOD No comment entered. Ordering Provider: JORDANA LOERA Report Released Date/Time: Jun 29, 2024 04:01 PM Reporting Lab: [facility] [place] [address] [address] Performing Lab: [facility] [place] [address] [address] [facility] [place] [facility] CBC PLATELETS [#/VOLUME] IN BLOOD BY AUTOMATED COUNT 211 10*3/u L 140 - 360 07/10 Specimen Type: BLOOD No comment entered. Ordering Provider: JORDANA LOERA Report Released Date/Time: Jun 29, 2024 04:01 PM Reporting Lab: [facility] [place] [address] [address] Performing Lab: [facility] [place] [address] [address] [facility] [place] [facility] CBC ERYTHROCYTE DISTRIBUTIO N WIDTH [RATIO] BY AUTOMATED COUNT 13.2 12.0 - 16.0 07/10 Specimen Type: BLOOD No comment entered. Ordering Provider: JORDANA LOERA Report Released Date/Time: Jun 29, 2024 04:01 PM Reporting Lab: [facility] [place] [facility] [address] [facility] [address] Performing Lab: [facility] [place] [facility] [address] [facility] [address] [facility] [place] [facility] CBC MCH [ENTITIC MASS] BY AUTOMATED COUNT 31.7 pg 26.2 - 32.6 07/10 Specimen Type: BLOOD No comment entered. Ordering Provider: JORDANA LOERA Report Released Date/Time: Jun 29, 2024 04:01 PM Reporting Lab: [facility] [place] [address] [address] Performing Lab: [facility] [address] [address] [facility] [place] [facility] LIPID PANEL, NON FASTING CHOLESTEROL [MASS/VOLUM E] IN SERUM OR PLASMA 204 mg/dL 07/10 H Specimen Type: SERUM No comment entered. Ordering Provider: JORDANA LOERA Report Released Date/Time: Jun 29, 2024 04:01 PM Reporting Lab: [facility] [place] [address] [address] Performing Lab: [facility] [place] [address] [address] [facility] [place] [facility] LIPID PANEL, NON FASTING TRIGLYCERID E [MASS/VOLUM E] IN SERUM OR PLASMA 125 mg/dL 0 - 150 07/10 Specimen Type: SERUM No comment entered. Ordering Provider: JORDANA LOERA Report Released Date/Time: Jun 29, 2024 04:01 PM Reporting Lab: [facility] [place] [address] [address] Performing Lab: [facility] [place] [facility] [address] [facility] [address] [facility] LIPID PANEL, NON FASTING CHOLESTEROL IN LDL [MASS/VOLUM E] IN SERUM OR PLASMA BY CALCULATION 135 mg/dL 0 - 129 07/10 H Specimen Type: SERUM No comment entered. Ordering Provider: JORDANA LOERA Report Released Date/Time: Jun 29, 2024 04:01 PM Reporting Lab: [facility]AT[facility]ITALUSETS [facility] [address] [facility] [address] Performing Lab: [facility]RNORTHE[facility]ENTERN [facility]PITALUSE[facility] [address] [facility] [address] [facility]ITALUSE [facility] LIPID PANEL, NON FASTING CHOLESTEROL .TOTAL/CHOL ESTEROL IN HDL [MASS RATIO] IN SERUM OR PLASMA 4.6 07/10 Specimen Type: SERUM No comment entered. Ordering Provider: JORDANA LOERA Report Released Date/Time: Jun 29, 2024 04:01 PM Reporting Lab: [facility]AMATRN [facility]PITALUSETS [facility] [address] [facility] [address] Performing Lab: [facility]AMATRN [facility]PITALUSEW[facility] [address] [facility] [address] [facility]ITALUSE [facility] LIPID PANEL, NON FASTING CHOLESTEROL IN HDL [MASS/VOLUM E] IN SERUM OR PLASMA 44 mg/dL 40 - 60 07/10 Specimen Type: SERUM No comment entered. Ordering Provider: JORDANA LOERA Report Released Date/Time: Jun 29, 2024 04:01 PM Reporting Lab: [facility]RL TRN [facility] HOSPITALUSETS [facility] [address] [facility] [address] Performing Lab: [facility]RT[facility]ATRN [facility]OSPITALUSETS [address] [address] [facility]ITALRNORTHEAST AL[facility]ENTERN [facility]OSPITALUSE [facility] LIVER FUNCTION PROTEIN [MASS/VOLUM E] IN SERUM OR PLASMA 6.7 g/dL 6.0 - 8.3 07/10 Specimen Type: SERUM No comment entered. Ordering Provider: JORDANA LOERA Report Released Date/Time: Jun 29, 2024 04:01 PM Reporting Lab: [facility] [place] [facility] [address] [facility] [address] Performing Lab: [facility] [place] [facility] [address] [facility] [address] [facility] [place] [facility] LIVER FUNCTION ALBUMIN [MASS/VOLUM E] IN SERUM OR PLASMA 3.8 g/dL 3.5 - 5.0 07/10 Specimen Type: SERUM No comment entered. Ordering Provider: JORDANA LOERA Report Released Date/Time: Jun 29, 2024 04:01 PM Reporting Lab: [facility] [place] [facility] [address] [facility] [address] Performing Lab: [facility] [place] [facility] [address] [facility] [address] [facility] [facility] LIVER FUNCTION ALKALINE PHOSPHATASE [ENZYMATIC ACTIVITY/VO LUME] IN SERUM OR PLASMA 61 U/L 40 - 150 07/10 Specimen Type: SERUM No comment entered. Ordering Provider: JORDANA LOERA Report Released Date/Time: Jun 29, 2024 04:01 PM Reporting Lab: [facility] [place] [facility] [address] [facility] [address] Performing Lab: [facility] [place] [facility] [address] [facility] [address] [facility] [place] [facility] LIVER FUNCTION ASPARTATE AMINOTRANSF ERASE [ENZYMATIC ACTIVITY/VO LUME] IN SERUM OR PLASMA 18 U/L 5 - 34 07/10 Specimen Type: SERUM No comment entered. Ordering Provider: JORDANA OLERA Report Released Date/Time: Jun 29, 2024 04:01 PM Reporting Lab: [facility] [place] [facility] [address] [facility] [address] Performing Lab: [facility] [place] [facility] [address] [facility] [address] [facility] [place] [facility] LIVER FUNCTION ALANINE AMINOTRANSF ERASE [ENZYMATIC ACTIVITY/VO LUME] IN SERUM OR PLASMA 19 U/L 07/10 Specimen Type: SERUM No comment entered. Ordering Provider: JORDANA LOERA Report Released Date/Time: Jun 29, 2024 04:01 PM Reporting Lab: [facility] [place] [facility] [address] [facility] [address] Performing Lab: [facility] [place] [facility] [address] [facility] [address] [facility] [place] [facility] LIVER FUNCTION BILIRUBIN.T OTAL [MASS/VOLUM E] IN SERUM OR PLASMA 0.7 mg/dL 0.2 - 1.2 07/10 Specimen Type: SERUM No comment entered. Ordering Provider: JORDANA LOERA Report Released Date/Time: Jun 29, 2024 04:01 PM Reporting Lab: [facility] [place] [facility] [address] [facility] [address] Performing Lab: [facility] [place] [address] [address] [facility] [place] [facility] PSA PROSTATE SPECIFIC AG [MASS/VOLUM E] IN SERUM OR PLASMA < 0.10ng /mL 0.00 - 4.00 07/10 Specimen Type: SERUM No comment entered. Ordering Provider: JORDANA LOERA Report Released Date/Time: Jun 29, 2024 04:01 PM Reporting Lab: [facility] [place] [address] [address] Performing Lab: [facility] [place] [address] [address] [facility] [place] [facility] THYROID T4 FREE(FT4) THYROXINE (T4) FREE [MASS/VOLUM E] IN SERUM OR PLASMA 1.14 ng/dL 0.6 - 1.6 07/14 Specimen Type: SERUM No comment entered. Ordering Provider: JORDANA LOERA Report Released Date/Time: Jul 01, 2023 09:00 AM Reporting Lab: [facility] [place] [facility] [address] [facility] [address] Performing Lab: [facility] [place] [facility] [address] [facility] [address] [facility] BASIC METABOLIC PANEL (fasting) UREA NITROGEN [MASS/VOLUM E] IN SERUM OR PLASMA 19 mg/dL 7 - 25 07/14 Specimen Type: SERUM No comment entered. Ordering Provider: JORDANA LOERA Report Released Date/Time: Jul 01, 2023 09:00 AM Reporting Lab: [facility]RNORTHE[facility] CENTERN [facility]ITALUSE[address] [address] Performing Lab: [facility]ITALRTAN[facility] AL[facility]AMATRN [facility]PITALUSE[address] [address] [facility] BASIC METABOLIC PANEL (fasting) GLUCOSE [MASS/VOLUM E] IN SERUM OR PLASMA 100 mg/dL 65 - 100 07/14 Specimen Type: SERUM No comment entered. Ordering Provider: JORDANA LOERA Report Released Date/Time: Jul 01, 2023 09:00 AM Reporting Lab: [facility]ITALUSE[address] [address] Performing Lab: [facility]RT[facility]ATRN [facility]ITALUSE[address] [address] [facility] BASIC METABOLIC PANEL (fasting) SODIUM [MOLES/VOLU ME] IN SERUM OR PLASMA 140 mmol/L 135 - 145 07/14 Specimen Type: SERUM No comment entered. Ordering Provider: JORDANA OLERA Report Released Date/Time: Jul 01, 2023 09:00 AM Reporting Lab: [facility]RNORTHE[facility] CENTERN [facility]ITALUSE[address] [address] Performing Lab: [facility]RT[facility]ATRN [facility]ITALUSE[address] [address] [facility] BASIC METABOLIC PANEL (fasting) POTASSIUM [MOLES/VOLU ME] IN SERUM OR PLASMA 4.6 mmol/L 3.5 - 5.0 07/14 Specimen Type: SERUM No comment entered. Ordering Provider: JORDANA LOERA Report Released Date/Time: Jul 01, 2023 09:00 AM Reporting Lab: [facility]RT[facility]ATRN [facility]ITALUSE[address] [address] Performing Lab: [facility] [place] [facility] [address] [facility] [address] [facility] BASIC METABOLIC PANEL (fasting) CHLORIDE [MOLES/VOLU ME] IN SERUM OR PLASMA 107 mmol/L 100 - 110 07/14 Specimen Type: SERUM No comment entered. Ordering Provider: JORDANA LOERA Report Released Date/Time: Jul 01, 2023 09:00 AM Reporting Lab: [facility] [place] [facility] [address] [facility] [address] Performing Lab: [facility] [place] [facility] [address] [facility] [address] [facility]N [facility]OSPITALUSE [facility] BASIC METABOLIC PANEL (fasting) CARBON DIOXIDE, TOTAL [MOLES/VOLU ME] IN SERUM OR PLASMA 25 meq/L 20 - 30 07/14 Specimen Type: SERUM No comment entered. Ordering Provider: JORDANA LOERA Report Released Date/Time: Jul 01, 2023 09:00 AM Reporting Lab: [facility] [place] [facility] [address] [facility] [address] Performing Lab: [facility] [place] [facility] [address] [facility] [address] [facility]ITALUSE [facility] BASIC METABOLIC PANEL (fasting) CREATININE [MASS/VOLUM E] IN SERUM OR PLASMA 1.02 mg/dL 0.50 - 1.40 07/14 Specimen Type: SERUM No comment entered. Ordering Provider: JORDANA LOERA Report Released Date/Time: Jul 01, 2023 09:00 AM Reporting Lab: [facility] [place] [facility] [address] [facility] [address] Performing Lab: [facility] [place] [facility] [address] [facility] [address] [facility] BASIC METABOLIC PANEL (fasting) GLOMERULAR FILTRATION RATE/1.73 SQ M.PREDICTED [VOLUME RATE/AREA] IN SERUM, PLASMA OR BLOOD BY CREATININE- BASED FORMULA (CKD-EPI 2020) 80 mL/min 60 07/14 Specimen Type: SERUM No comment entered. Ordering Provider: JORDANA LOERA Report Released Date/Time: Jul 01, 2023 09:00 AM Reporting Lab: [facility] [place] [facility] [address] [facility] [address] Performing Lab: [facility] [place] [facility] [address] [facility] [address] [facility] [place] [facility] LIPID PANEL FASTING CHOLESTEROL [MASS/VOLUM E] IN SERUM OR PLASMA 199 mg/dL 07/14 Specimen Type: SERUM No comment entered. Ordering Provider: JORDANA LOERA Report Released Date/Time: Jul 01, 2023 09:00 AM Reporting Lab: [facility] [place] [facility] [address] [facility] [address] Performing Lab: [facility] [place] [facility] [address] [facility] [address] [facility] [facility] LIPID PANEL FASTING TRIGLYCERID E [MASS/VOLUM E] IN SERUM OR PLASMA 112 mg/dL 0 - 150 07/14 Specimen Type: SERUM No comment entered. Ordering Provider: JORDANA LOERA Report Released Date/Time: Jul 01, 2023 09:00 AM Reporting Lab: [facility] [place] [facility] [address] [facility] [address] Performing Lab: [facility] [place] [facility] [address] [facility] [address] [facility] [place] [facility] LIPID PANEL FASTING CHOLESTEROL IN LDL [MASS/VOLUM E] IN SERUM OR PLASMA BY CALCULATION 132 mg/dL 0 - 129 07/14 H Specimen Type: SERUM No comment entered. Ordering Provider: JORDANA LOERA Report Released Date/Time: Jul 01, 2023 09:00 AM Reporting Lab: [facility] [place] [facility] [facility] [address] [facility] [address] Performing Lab: [facility] [place] [facility] [address] [facility] [address] [facility] [place] [facility] LIPID PANEL FASTING CHOLESTEROL .TOTAL/CHOL ESTEROL IN HDL [MASS RATIO] IN SERUM OR PLASMA 4.4 07/14 Specimen Type: SERUM No comment entered. Ordering Provider: JORDANA LOERA Report Released Date/Time: Jul 01, 2023 09:00 AM Reporting Lab: [facility] [place] [facility] [address] [facility] [address] Performing Lab: [facility] [address] [address] [facility] LIPID PANEL FASTING CHOLESTEROL IN HDL [MASS/VOLUM E] IN SERUM OR PLASMA 45 mg/dL 40 - 60 07/14 Specimen Type: SERUM No comment entered. Ordering Provider: JORDANA LOERA Report Released Date/Time: Jul 01, 2023 09:00 AM Reporting Lab: [facility] [address] Performing Lab: [facility] [address] [address] [facility]AM[facility]RN [facility] LIVER FUNCTION PROTEIN [MASS/VOLUM E] IN SERUM OR PLASMA 6.9 g/dL 6.0 - 8.3 07/14 Specimen Type: SERUM No comment entered. Ordering Provider: JORDANA LOERA Report Released Date/Time: Jul 01, 2023 09:00 AM Reporting Lab: [facility] [place] [address] [address] Performing Lab: [facility] [place] [address] [address] [facility]N [facility] LIVER FUNCTION ALBUMIN [MASS/VOLUM E] IN SERUM OR PLASMA 4.0 g/dL 3.5 - 5.0 07/14 Specimen Type: SERUM No comment entered. Ordering Provider: JORDANA LOERA Report Released Date/Time: Jul 01, 2023 09:00 AM Reporting Lab: [facility] [address] [address] Performing Lab: [facility] [address] [address] [facility] [place] [facility] LIVER FUNCTION ALKALINE PHOSPHATASE [ENZYMATIC ACTIVITY/VO LUME] IN SERUM OR PLASMA 65 U/L 40 - 150 07/14 Specimen Type: SERUM No comment entered. Ordering Provider: JORDANA LOERA Report Released Date/Time: Jul 01, 2023 09:00 AM Reporting Lab: [facility] [place] [facility] [address] [facility] [address] Performing Lab: [facility] [place] [facility] [address] [facility] [address] [facility] [place] [facility] LIVER FUNCTION ASPARTATE AMINOTRANSF ERASE [ENZYMATIC ACTIVITY/VO LUME] IN SERUM OR PLASMA 18 U/L 5 - 34 07/14 Specimen Type: SERUM No comment entered. Ordering Provider: JORDANA LOERA Report Released Date/Time: Jul 01, 2023 09:00 AM Reporting Lab: [facility] [place] [address] [address] Performing Lab: [facility] [place] [address] [address] [facility] [place] [facility] LIVER FUNCTION ALANINE AMINOTRANSF ERASE [ENZYMATIC ACTIVITY/VO LUME] IN SERUM OR PLASMA 23 U/L 07/14 Specimen Type: SERUM No comment entered. Ordering Provider: JORDANA LOERA Report Released Date/Time: Jul 01, 2023 09:00 AM Reporting Lab: [facility] [place] [facility] [address] [place] [address] Performing Lab: [facility] [place] [facility] [address] [place] [address] [facility] [place] [facility] LIVER FUNCTION BILIRUBIN.T OTAL [MASS/VOLUM E] IN SERUM OR PLASMA 0.8 mg/dL 0.2 - 1.2 07/14 Specimen Type: SERUM No comment entered. Ordering Provider: JORDANA LOERA Report Released Date/Time: Jul 01, 2023 09:00 AM Reporting Lab: [facility] [place] [facility] [address] [facility] [address] Performing Lab: [facility] [place] [facility] [address] [facility] [address] [facility] [place] TSH THYROTROPIN [UNITS/VOLU ME] IN SERUM OR PLASMA 1.15 u[IU]/ mL 0.35 - 5.00 07/14 Specimen Type: SERUM No comment entered. Ordering Provider: JORDANA LOERA Report Released Date/Time: Jul 01, 2023 09:00 AM Reporting Lab: [facility] [place] [facility] [address] [facility] [address] Performing Lab: [facility] [place] [facility] [address] [facility] [address] [facility] Vital Signs Combined list of inpatient and outpatient Vital Signs from Department of Defense and Veterans Affairs, ranging from 12 months to all on record, depending upon the facility. Vital Sign Value Date Comments Source SYSTOLIC BLOOD PRESSURE 147 11/08/19 25 09:56:06 [facility] [place] DIASTOLIC BLOOD PRESSURE 90 025 09:56:06 [facility] [place] [facility] PULSE OXIMETRY 98 11/08/2024 09:56:06 [facility] WEIGHT 251 11/08/2024 09:56:06 [facility] BMI 37 kg/m2 11/08/2024 09:56:06 [facility] PAIN 4 11/08/2024 09:56:06 [facility] HEIGHT 69 11/08/2024 09:56:06 [facility] TEMPERATURE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
--- OUTSIDE RECORDS SUMMARY | 2024-12-20 08:19 | XMS_ITS ---
Author Name [facility] [facility] [place] Address [address] [place] [address] Care Team Providers Care Crimping Press Operator Name Role Phone GULSHAN KITCHEN Primary Care Provider [facility] Insurance Providers: All historical and current Section [...] PART A Jul 04, 2019 PART A [id number] KYLAHROQUE PATIENT Selected Encounter This section includes the information on record at [place] for the Encounter. Date/Time Encounter Type Encounter Description Reason Provider Source Jan 13, 2024 10:00 AM OFFICE O/P EST LOW 20 MIN PRIMARY CARE/MEDICINE ICD-10-CM R35.1 Nocturia SILVERIO KITCHEN AM [facility] Encounter Template Text not used by [place] Assessments - Encounter Diagnoses This section includes the primary and secondary diagnoses documented for the Encounter. Date/Time Primary/Secondary Diagnosis Diagnosis Name Provider Source Jan 13, 2024 10:15 AM PRIMARY Nocturia SILVERIO KITCHEN AM [place] [facility] [place] [facility] Jan 13, 2024 10:15 AM SECONDARY Carcinoma in situ of prostate SILVERIO KITCHEN AM [place] [facility] [place] [facility] Jan 13, 2024 10:15 AM SECONDARY Pain in left knee SILVERIO KITHCEN AM [facility] Jan 13, 2024 10:15 AM SECONDARY Pain in right knee SILVERIO KITCHEN AM [facility] Plan of Treatment: Future Appointments (+ 6 months) and Future Tests (+/- 45 days) The Plan of Treatment section includes future care activities for the patient from all [place] treatmentfacilities. This section includes future appointments and future orders which are active, pending or scheduled. Future Appointments This section includes appointments that were scheduled to occur 6 months from the date of the Encounter, up to a maximum of 20 appointments. The data comes from all [place] treatment facilities. Appointment Date/Time Appointment Type Appointme nt Facility Name February 14, 2024 10:20 AM [facility]UL[facility] Mar 27, 2024 01:30 [facility] May 10, 2024 08:30 AM [facility] May 11, 2024 02:30 PM AMBULATORY MEDICINE [facility] NTRL TRN [facility] Jun 22, 2024 01:00 PM AMBULATORY MEDICINE [facility] NTRL TRN [facility] Jul 10, 2024 10:00 [facility] Vital Signs: All taken on the encounter date This section contains inpatient and outpatient Vital Signs collected on the date of the Encounter. Date/Time Temperature Pulse Blood Pressure Respiratory Rate SP02 Pain Height Weight Body Mass Index Source Jan 13, 2024 09:49 AM 97.4 62 136/89 18 95 0 71 253 35 [facility] Social History: Smoking Status (Most current) and Tobacco Use (All prior to encounter date) This section includes the most current, and the historical, smoking and tobacco- related health factors from the [place] facility where the Encounter took place. Current Smoking Status This section includes the most current smoking, or tobacco-related health factor, from the [place] facility where the Encounter took place. Date/Time Current Smoking Status Comment Bert mayes Mar 30, 2023 08:17 AM VA-TOBACCO FORMER USER [facility] Tobacco Use History This section includes a history of the smoking, or tobacco-related health factors, that were collected on or before the date of the Encounter. The data comes from the [place] facility where the Encounter took place. Date/Time Smoking Status/Tobacco Use Comment F acility Mar 30, 2023 08:17 AM VA-TOBACCO QUIT 15 YRS OR MORE [place] [facility] [place] [facility] Encounter Notes: All associated encounter notes This section contains the clinical notes associated to the Encounter. Date/Time Encounter Note(s) Provider Source Jan 13, 2024 10:11 AM PRIMARY CARE NURSE PRACTITIONER OUTPATIENT NOTE: LOCAL TITLE: NURSE PRACTITIONER OUTPATIENT NOTE STANDARD TITLE: PRIMARY CARE NURSE PRACTITIONER OUTPATIENT NOTE DATE OF NOTE: JAN 13, 2024@10:11 ENTRY DATE: JAN 13, 2024@10:11:19 AUTHOR: GULSHAN KITCHEN COSIGNER: URGENCY: STATUS: COMPLETED Chief complaint: Patient is a 68 year old . HPI: Pleasant male here to follow up. He reports worsening nocturia, 6- 7x per night. Otherwise feeling well. Allergies: Patient has answered NKA The following VA and Non-VA meds were reconciled with patient. The patient was educated on the use of the medications including indication and side effects. Active and Recently Outpatient Medications (excluding Supplies): Active Non-VA Medications Status = 1) Non-VA MULTIVITAMIN/MINERALS CAP/TAB 1 TABLET BY ACTIVE MOUTH ONCE DAILY Review of Systems: Constitutional: (-)for Fevers, chills, weakness, nights sweats On examination: 97.4 F [36.3 C] (01/13/2024 09:49)136/89 (01/13/2024 09:49)62 (01/13/2024 09:49) 18 (01/13/2024 09:49)0 (01/13/2024 09:49)BMI: 35.4253 lb [114.76 kg] (01/13/2024 09:49) [place] is alert and oriented X3 Cardiovasc: 2plus carotids without bruits, no JVD Heart Reguler rate and rhythm NL S1S2 no S3 or murmur Respiration: Normal respiratory effort, lungs clear ABD: Benign normal active bowel sounds no HSM no rebound or referred pain EXT: no clubbing, edema, or cyanosis Assessment/plan: Active problems - Computerized Problem List is the source for the followin. Nocturia - refer to urology 2. Pain of bilateral knee regions - reviewed xrays, he is managing well with osteobiflex 3. Carcinoma of prostate - see #1 Review of medial record = 5mins Time spent with Patient including shared decision making = 20 mins Post visit documentation = 5mins Total time = 30 mins Follow up visit in 6 mos. Alert to PACT RN - Labs as necessary to address clinical status. Avg Risk Colorectal Cancer Screen: AVERAGE RISK colorectal cancer screening is due based on information available to this clinical reminder Colorectal cancer screening already scheduled or in process of being scheduled. Influenza Immunization: The patient has received the seasonal influenza vaccine for the current season at another location. Documented: INFLUENZA, UNSPECIFIED FORMULATION Historical Date Administered: Jul 04, 2023 Information Source: SOURCE UNSPECIFIED COVID-19 Immunization: Patient received a prior dose of the Moderna Monovalent vaccine. Documented: COVID-19 (MODERNA), MRNA, LNP-S, PF, 50 MCG/0.5 ML (AGES 12+ YEARS) Historical Date Administered: Jul 04, 2023 Series: Series 1 Information Source: SOURCE UNSPECIFIED Sexual Orientation: The patient thinks of their sexual orientation as: Straight or Heterosexual Medication Reconciliation: Patient reports taking no medications. Meds were not administered, prescribed, modified, nor influenced the care given at this encounter. /malissa/ Gulshan Kitchen DNP, AUDIO OPERATOR-BC, CNL Primary Care Nurse Practitioner Signed: 01/13/2024 10:15 GULSHAN KITCHEN [place] [facility] Jan 13, 2024 09:53 AM PREVENTIVE MEDICINE NURSING NOTE: LOCAL TITLE: CLINICAL REMINDERS/NURSING STANDARD TITLE: PREVENTIVE MEDICINE NURSING NOTE DATE OF NOTE: JAN 13, 2024@09:53 ENTRY DATE: JAN 13, 2024@09:53:37 AUTHOR: SUNNY JOHNSON COSIGNER: URGENCY: STATUS: COMPLETED Advance Directive Screen MH AD: Patient does not have a completed advance directive on file at any facility, [facility] or outside. S/he is not interested in completing one at this time. The patient received education about Advance Directives and written notification of his/her rights. Suicide Screen: C-SSRS Screening [place]-Suicide Severity Rating Scale (C-SSRS Screener) 1. Over the past month, have you wished you were or wished you could go to sleep and not wake up? No 2. Over the past month, have you had any actual thoughts of killing yourself? No 3. Over the past month, have you been thinking about how you might do this? Response not required due to responses to other questions. 4. Over the past month, have you had these thoughts and had some intention of acting on them? Response not required due to responses to other questions. 5. Over the past month, have you started to work out or worked out the details of how to kill yourself? Response not required due to responses to other questions. 6. If yes, at any time in the past month did you intend to carry out this plan? Response not required due to responses to other questions. 7. In your lifetime, have you ever done anything, started to do anything, or prepared to do anything to end your life (for example, collected pills, obtained a gun, gave away valuables, went to the roof but didn't jump)? No 8. If YES, was this within the past 3 months? Response not required due to responses to other questions. /malissa/ [facility] [employer] ACCOUNTANT CLERK,PRIMARY CARE Signed: 01/13/2024 09:54 SUNNY JOHNSON [facility]
--- OUTSIDE RECORDS SUMMARY | 2024-12-20 08:19 | XMS_ITS ---
Author Organization [facility] Address [address] [place] [id number] Care Team Providers Care Slasher Sawyer Name Role Phone Imtiaz REMY, Gulshan Primary Care Provider Johnathon Martínez Jr, Toby Crooks [phone] REASON FOR VISIT screening Encounters Encounter Location Date Provider [place] [facility] [place] [address] [place] [phone] 03/10/2024 Toby Martínez Jr Encounter for screening colonoscopy Z12.11 and Family history of colon cancer Z80.0 Assessments Encounter Date Diagnosis (ICD Code) Assessment Notes Treatment Notes Treatment Clinical Notes Section Notes 03/10/2024 Encounter for screening colonoscopy (ICD-10 - Z12.11) 03/10/2024 Family history of colon cancer (ICD-10 - Z80.0) Plan Of Treatment No Information Progress Notes * ROQUE MONTERODOB: [birth year] (69 yo M)Acc No.[id number]:03/10/2024 COLON WITH MAC Patient:?ROQUE MONTERO Provider:?Toby Martínez MD :1955???Age:68 Y???Sex:Male Kvng e:03/10/2024 Address:[address] [place] [address] Pcp:Gulshan Kitchen NP Subjective: * Chief Complaints: * ???1. Screening. * Medical History:? Objective: * Vitals:? Assessment: * Assessment: 1.?Encounter for screening c olonoscopy - Z12.11 (Primary)???2.?Family history of colon cancer - Z80.0??? Plan: * Treatment: * Procedure Codes:?01435 DIAGN OSTIC COLONOSCOPY * * The named appointment provid er may or may not be the originator of this progress note, and it is not deemed complete until electronically signed by the appointment provider. Sign off status: Pending * Provider:?Toby Martínez MD Date:?0 03/10/2024 Generated for Bal walter/Alvarado/Sofiaitting on:?12/20/2024 08:19 AM EDT
--- OUTSIDE RECORDS SUMMARY | 2024-12-20 08:19 | XMS_ITS ---
Author Organization [facility] Address [address] [place] [phone] Care Team Providers Care Warehouse Hand Name Role Phone Imtiaz REMY, Gulshan Primary Care Provider Toby Lake Jr Unavailable [phone] Allergies No Known Allergies REASON FOR VISIT Patient presents today for a COLON SCREENING Medications Medication SIG (Take, Route, Frequency, Duration) Notes Start Date End Date Status MiraLax (colon prep) 17 GM/SCOOP mixed with Gatorade or Crystal Light Orally begin at 5:00 p.m. the day before the procedure for 1 day 02/14/2024 Active Social History Tobacco Use: Social History Observation [...] Problem Status W/U Status Risk Notes Problem 723131022 Colon cancer screening (Z12.11) Active confirmed Problem [id number] FH: colon cancer (Z80.0) Active confirmed Problem 710875074 Encounter for other preprocedural examination (Z01.818) Active confirmed Vital Signs Temperature 98.6 degrees Fahrenheit 02/14/20 24 Blood pressure systolic 000 mm Hg 02/14/20 24 Blood pressure diastolic 00 mm Hg 024 Height 5 ft 9 in in 02/14/2024 Weight 252 lb 6 oz lbs 02/14/2024 BMI 37.27 kg/m2 02/14/2024 Encounters Encounter Location Date Provider Diagnosis [facility] [address] [place] [phone] 02/14/2024 Toby Martínez Jr Colon cancer screening Z12.11 ; Encounter for other preprocedural examination Z01.818 and FH: colon cancer Z80.0 Assessments Encounter Date Diagnosis (ICD Code) Assessment Notes Treatment Notes Treatment Clinical Notes Section Notes 02/14/2024 Colon cancer screening (ICD-10 - Z12.11) [...] and agrees to proceed. Plan Of Treatment Medication Medication Name Sig Start Date Stop Date Notes MiraLax (colon prep) 17 GM/SCOOP mixed with Gatorade or Crystal Light Orally begin at 5:00 p.m. the day before the procedure for 1 day 02/14/2024 Treatment Notes Assessment Notes Colon cancer screening Colonoscopy mater ial was printed Future Test Test Name Order Date COLONOSCOPY 02/14/2024 Next Appt Details Follow Up: 1 Year, Reason: Progress Notes * ROQUE MONTERODOB: [birth year] (68 yo M)Acc No.[id number]:02/14/2024 Progress Notes Patient:?ROQUE MONTERO Provider:?Toby Martínez MD :1955???Age:68 Y???Sex:Male Kvng e:02/14/2024 Address:[address] [place], [place] [id number] Pcp:Gulshan Kitchen NP Subjective: * Chief Complaints: * ???1. Patient presents today for a COLON SCREENING. * HPI: ???New symptom(s):? Roque is a pleasant 68-year-old man seen today for his preoperative colonoscopy visit. He has no complaints of rectal bleeding or change in his bowel habits. Colonoscopy approximately 5 years ago was negative by his report. He has a family history of colon cancer in his mother. * ROS:?General/Constitutional:?Change in appetite?denies.?Fatigue?denies.?ENT:?Patient denies?difficulty swallowing.?Respiratory:?Patient denies?shortness of breath.?Cardiovascular:?Patient denies?chest pain.?Gastrointestinal:?Comments?See HPI for details.?Genitourinary:?Difficulty urinating?denies.?Incontinence?denies.?Musculoskeletal:?Patient denies?muscle aches.?Skin:?Patient denies?pruritis.?Neurologic:?Patient denies?low back pain.?Psychiatric:?Patient denies?mental or physical abuse.? * Medical History:?Prostate ca ncer, Osteoarthritis, Family history of colon cancer, last colonoscopy approximately 2018, five-year followup. * Surgical History:?Prostatect claude 2019. * Family History:?Father: dece ased.?Mother: , diagnosed with Colon cancer.? No family history of liver cancer. * Social History:?Tobacco Use:?Tobacco Use/Smoking?Patient is a?nonsmoker.?Drugs/Alcohol:?Alcohol Screen?Did you have a drink containing alcohol in the past year??Yes,?How often did you have a drink containing alcohol in the past year??Monthly or less (1 point), How many drinks did you have on a typical day when you were drinking in the past year??1 or 2 drinks (0 point),?How often did you have 6 or more drinks on one occasion in the past year??Never (0 point),?Points?1,?Interpretation?Negative.?Miscellaneous:?Marital status: . 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 * Medications:?None * Allergies:?N.K.D.A. Objective: * Vitals:?Wt: 252 lb 6 oz, Ht: 5 ft 9 in, BMI:37.27 Index, BP: 000/00 mm Hg, Temp: 98.6. * Examination: ???General Examination: ?GENERAL APPEARANCE:?in no acute distress.?HEAD:?normocephalic.?EYES:?sclera non-icteric.?ORAL CAVITY:?mucosa moist.?NECK/THYROID:?no lymphadenopathy.?SKIN:?anicteric.?HEART:?S1, S2 normal, no murmurs.?LUNGS:?clear to auscultation bilaterally.?CHEST:?normal shape and expansion.?ABDOMEN:?soft, nontender, nondistended, bowel sounds present, no organomegaly .?EXTREMITIES:?no clubbing, cyanosis, or edema.?PSYCH:?cognitive function intact.? Assessment: * Assessment: 1.?Encounter for other prepr ocedural examination - Z01.818 (Primary)?2.?Colon cancer screening - Z12.11?3.?FH: colon cancer - Z80.0? We discussed colonoscopy tod ay. We discussed risks and benefits of the procedure today. He understands these and agrees to proceed. Plan: * Treatment: * Procedure Codes:?3017F COLOR ECTAL CA SCREEN DOC REV, G9903 Pt scrn tbco id as non user, G9745 DOC RSN FOR NOT SCREEN/REC F/U HBP * Preventive Medicine:? ??Counseling:?Care goal follow-up plan:?Above Normal BMI Follow-up?Giving encouragement to exercise,?BMI management provided?Yes.? * Follow Up:?1 Year * * Sign off status: Completed true * Provider:?Toby Martínez MD Date:?0 02/14/2024 Generated for Chrisi saba/Alvarado/eTransmitting on:?12/20/2024 08:18 AM EDT History and Physical Notes * HPI (History of Present Illness) Category Sub-Category Detail Notes Category Not es New symptom(s) Roque is a p leasant 68-year-old man seen today for his preoperative colonoscopy visit. He has no complaints of rectal bleeding or change in his bowel habits. Colonoscopy approximately 5 years ago was negative by his report. He has a family history of colon cancer in his mother. Examination Category Sub-Category Detail Notes Category Not es General Examination GENERAL APPEARANCE: in no acute di stress HEAD: normocephalic EYES: sclera non-icteric NECK/THYROID: no lymphadenopathy HEART: S1, S2 normal, no mu rmurs CHEST: normal shape and exp ansion LUNGS: clear to auscultatio n bilaterally ABDOMEN: soft, nontender, non distended, bowel sounds present, no organomegaly SKIN: anicteric EXTREMITIES: no clubbing, cyanosi s, or edema PSYCH: cognitive function i ntact ORAL CAVITY: mucosa moist
--- OUTSIDE RECORDS SUMMARY | 2024-12-20 08:19 | XMS_ITS ---
Author Name [facility] Organization [facility] Address [address] [place] [address] Care Team Providers Care Microsoft Dynamics Developer Name Role Phone GULSHAN KITCHEN Primary Care Provider [facility] Insurance Providers: All historical and current Section [...] PART A Jul 04, 2019 PART A [id number] KYLAHROQUE PATIENT Selected Encounter This section includes the information on record at OR for the Encounter. Date/Time Encounter Type Encounter Description Reason Provider Source Jul 10, 2024 10:00 AM OFFICE O/P EST LOW 20 MIN PRIMARY CARE/MEDICINE ICD-10-CM R35.1 SILVERIO Kessler AM Encounter Template Text not used by OR Assessments - Encounter Diagnoses This section includes the primary and secondary diagnoses documented for the Encounter. Date/Time Primary/Secondary Diagnosis Diagnosis Name Provider Source Jul 10, 2024 10:19 AM PRIMARY Nocturia NATASHA KITCHEN [facility] [place] [facility] Jul 10, 2024 10:19 AM SECONDARY Encounter for immunization MORAIMA GARCIA [facility] [place] [facility] Jul 10, 2024 10:19 AM SECONDARY Pain in left knee NATASHA KITCHEN [facility] Plan of Treatment: Future Appointments (+ 6 months) and Future Tests (+/- 45 days) The Plan of Treatment section includes future care activities for the [facility] This section includes future appointments and future orders which are active, pending or scheduled. Future Appointments This section includes appointments that were scheduled to occur 6 months from the date of the Encounter, up to a maximum of 20 appointments. The data comes from all OR treatment facilities. Appointment Date/Time Appointment Type Appointme nt Facility Name Nov 08, 2024 10:00 AM AMBULATORY - MEDICINE [facility] Dec 18, 2024 01:00 PM [facility] Dec 20, 2024 08:45 [facility] Jan 01, 2025 02:00 PM AMBULATORY - [facility] Jan 08, 2025 10:00 AM AMBULATORY - MEDICINE [facility] Lab Results: +/- 30 days of the encounter This section includes the Chemistry and Hematology Lab Results on record with OR for the patient. Radiology Reports and Pathology Reports are provided separately, in subsequent sections. Lab Results This section contains the Chemistry/Hematology Results that were resulted 30 days before or 30 daysafter the date of the Encounter. Date/Time Source Result Type Result - Unit Interpretation Reference Range Comment Jul 10, 2024 10:40 AM [facility] CBC Specimen Type: BLOOD No comment entered. Ordering Provider: NATASHA KITCHEN Report Released Date/Time: Jun 29, 2024 04:01 PM Reporting Lab: [facility] [address] [facility] [address] Performing Lab: [address] [address] WBC 6.06 10*3/uL 4.50-11.00 RBC 4.58 10*6/uL 4.23-5.66 HGB 14.5 g/dL 12.8-17 HCT 41.6 39.2-50.4 MCV 90.8 fL 82-99 MCHC 34.9 g/dL 30.8-35.1 PLT 211 10*3/uL 140-360 RDW-CV 13.2 12.0-16.0 MCH 31.7 pg 26.2-32.6 Jul 10, 2024 10:40 AM [facility] LIPID PANEL, NON FASTING Specimen Type: SERUM No comment entered. Ordering Provider: NATASHA KITCHEN Report Released Date/Time: Jun 29, 2024 04:01 PM Reporting Lab: [address] [address] Performing Lab: [address] [address] CHOLESTEROL 204 mg/dL H TRIGLYCERIDE 125 mg/dL 0-150 LDL calculated 135 mg/dL H 0-129 CHOL/HDL 4.6 HDL CHOLESTEROL 44 mg/dL 40-60 Jul 10, 2024 10:40 AM [facility] BASIC METABOLIC PANEL (non-fasting) Specimen Type: SERUM No comment entered. Ordering Provider: NATASHA KITCHEN Report Released Date/Time: Jun 29, 2024 04:01 PM Reporting Lab: [address] [address] Performing Lab: [address] [address] UREA NITROGEN 16 mg/dL 7-25 GLUCOSE 99 mg/dL 65-100 SODIUM 139 mmol/L 135-145 POTASSIUM 4.7 mmol/L 3.5-5.0 CHLORIDE 106 mmol/L 100-110 CO2 25 meq/L 20-30 CREATININE, Serum 1.06 mg/dL 0.50-1.40 eGFR(CKD-EPI 2020) 75 mL/min >60 Jul 10, 2024 10:40 AM [facility] LIVER FUNCTION Specimen Type: SERUM No comment entered. Ordering Provider: NATASHA KITCHEN Report Released Date/Time: Jun 29, 2024 04:01 PM Reporting Lab: [address] [address] Performing Lab: [address] [place] [address] [address] PROTEIN,TOTAL 6.7 g/dL 6.0-8.3 ALBUMIN 3.8 g/dL 3.5-5.0 ALKALINE PHOSPHATASE 61 U/L 40-150 AST 18 U/L 5-34 ALT 19 U/L BILIRUBIN, TOTAL 0.7 mg/dL 0.2-1.2 Jul 10, 2024 10:40 AM [facility] PSA Specimen Type: SERUM No comment entered. Ordering Provider: NATASHA KITCHEN Report Released Date/Time: Jun 29, 2024 04:01 PM Reporting Lab: [address] [address] Performing Lab: [address] [address] PSA < 0.10 ng/mL 0.00-4.00 Vital Signs: All taken on the encounter date This section contains inpatient and outpatient Vital Signs collected on the date of the Encounter. Date/Time Temperature Pulse Blood Pressure Respiratory Rate SP02 Pain Height Weight Body Mass Index Source Jul 10, 2024 09:49 AM 97.9 60 151/87 16 97 0 69 255.4 38 [facility] Immunizations: All administered on the encounter date This section contains immunizations associated to the Encounter. Immunization Series Date Issued Reaction Comments COVID-19 (MODERNA), MRNA, LN P-S, PF, 50 MCG/0.5 ML (AGES 12+ YEARS) 4 Jul 10, 2024 INFLUENZA, HIGH-DOSE, TRIVALENT, PF Jul 10 Social History: Smoking Status (Most current) and Tobacco Use (All prior to encounter date) This section includes the most current, and the historical, smoking and tobacco- related health factors from the OR facility where the Encounter took place. Current Smoking Status This section includes the most current smoking, or tobacco-related health factor, from the OR facility where the Encounter took place. Date/Time Current Smoking Status Comment Bert mayes May 10, 2024 08:30 AM VA-TOBACCO FORMER USER [facility] Tobacco Use History This section includes a history of the smoking, or tobacco-related health factors, that were collected on or before the date of the Encounter. The data comes from the OR facility where the Encounter took place. Date/Time Smoking Status/Tobacco Use Comment F acility May 10, 2024 08:30 AM VA-TOBACCO QUIT 15 YRS OR MORE [facility] [place] [facility] Mar 30, 2023 08:17 AM VA-TOBACCO FORMER USER OR [facility] [place] [facility] Mar 30, 2023 08:17 AM VA-TOBACCO QUIT 15 YRS OR MORE [facility] Encounter Notes: All associated encounter notes This section contains the clinical notes associated to the Encounter. Date/Time Encounter Note(s) Provider Source Jul 10, 2024 10:15 AM PRIMARY CARE NURSE PRACTITIONER OUTPATIENT NOTE: LOCAL TITLE: NURSE PRACTITIONER OUTPATIENT NOTE STANDARD TITLE: PRIMARY CARE NURSE PRACTITIONER OUTPATIENT NOTE DATE OF NOTE: JUL 10, 2024@10:15 ENTRY DATE: JUL 10, 2024@10:15:24 AUTHOR: GULSHAN KITCHEN COSIGNER: URGENCY: STATUS: COMPLETED Chief complaint: Patient is a 68 year old [place]. HPI: Pleasant male [place] here to follow up. Feeling well. Allergies: Patient has answered NKA The [...] Fevers, chills, weakness, nights sweats On examination: 97.9 F [36.6 C] (07/10/2024 09:49)151/87 (07/10/2024 09:49)60 (07/10/2024 09:49)16 (07/10/2024 09:49)0 (07/10/2024 09:49)BMI: 37.8255.4 lb [115.85 kg] (07/10/2024 09:49) is alert and oriented X3 Cardiovasc: 2plus [...] the source for the followin. Nocturia - following with [facility] 2. Pain left knee - follows ortho surg, had MRI, will schedule follow up. Health Care Maintenance: flu+ and covid given in clinic Review of medial record = 5mins Time spent with Patient including shared decision making = 15 mins Post visit documentation = 5mins Total time = 25 mins Follow up visit in 6 mos. Medication Reconciliation: Outpatient: Has the patient been taking medications as documented in the EMLR? YES: The patient has been taking medications as documented in the EMLR. Essential Medication List for Review used to complete this medication reconciliation. INCLUDED IN THIS LIST: Alphabetical list of active outpatient prescriptions dispensed from this [facility] (local) and dispensed from another VA or [...] next appointment, whether with a VA or non-OR provider. /malissa/ Gulshan Kitchen DNP, AUTO BUMPER STRAIGHTENER-BC, CNL Primary Care Nurse Practitioner Signed: 07/10/2024 10:19 GULSHAN KITCHEN [facility] [place] Jul 10, 2024 10:08 AM PREVENTIVE MEDICINE NURSING NOTE: LOCAL TITLE: CLINICAL REMINDERS/NURSING STANDARD TITLE: PREVENTIVE MEDICINE NURSING NOTE DATE OF NOTE: JUL 10, 2024@10:08 ENTRY DATE: JUL 10, 2024@10:08:46 AUTHOR: MARIA ANTONIA GARCIA EXP COSIGNER: URGENCY: STATUS: COMPLETED Influenza Immunization: Influenza, High-Dose, Trivalent, Preservative Free (Fluzone-Syringe) Administered: INFLUENZA, HIGH-DOSE, TRIVALENT, PF Date Administered: Jul 10, 2024 10:00 Series: Complete Auto Clutch Specialist: SANOFI PASTEUR Lot: [id number] Exp Date: Apr 02, 2025 NDC: [id number] Admin Route/Site: INTRAMUSCULAR/RIGHT DELTOID Dosage: 0.5mL Vaccine Information Statement(s): INFLUENZA(FLU) VACC(INACTIVATED OR RECOMBINANT)VIS May 09, 2021 (SINGAPOREAN) Order By: Policy Administered By: Maria Antonia Garcia The Influenza Vaccine Information Statement (VIS) was reviewed with the patient/caregiver which lists the benefits and risks of the vaccine and the risks of not receiving the Influenza vaccine. The patient/caregiver denied any prior severe reaction to this vaccine or its components or a severe allergic reaction, such as anaphylaxis, to any vaccine or any injectable therapy. The patient/caregiver gave verbal consent to receive the vaccine. COVID-19 Immunization: Moderna Monovalent (Spikevax) Administered: COVID-19 (MODERNA), MRNA, LNP-S, PF, 50 MCG/0.5 ML (AGES 12+ YEARS) Date Administered: Jul 10, 2024 10:00 Series: Series 4 Auto Clutch Specialist: MODERNA [employer] Lot: [id number] Exp Date: February 23, 2025 NDC: [id number] Admin Route/Site: INTRAMUSCULAR/RIGHT DELTOID Dosage: 0.5mL Vaccine Information Statement(s): COVID-19 MRNA VACCINE (12+ YRS) VACCINE VIS Jul 22, 2023 (SINGAPOREAN) Order By: Policy Administered By: Maria Antonia Garcia Vaccine administered without complications. /malissa/ MARIA ANTONIA GARCIA LPN LPN Signed: 07/10/2024 10:10 MARIA ANTONIA GARCIA [facility]
--- NOTE | 2024-12-20 08:50 | A.OFFVIS_ITS ---
Intake Visit Reasons: 6m f/u(discuss penile prosthetic)set Intake Note: Patient is present for 6M (DISCUSS PENILE PROSTHETIC Urology Medication:NONE Antibiotic Allergy:NONE Blood Thinner:NONE Rubber Goods Cutter Finisher Required: No Allergies No Known Allergies [No Known Allergies*] Allergy (Verified 12/20/24 08:52) HPI Comments Details: Trip is a pleasant male. He is a patient of Dr. Kitchen. He is seen for the following urologic conditions - erectile dysfunction - prostate cancer - nocturia Has penile pump Started using Three-month follow-up plan for penile prosthetic Erectile dysfunction Progressive since prostatectomy Prostate cancer 2019 Radical prostatectomy PSA undetectable since Nocturia Had trial of Getesa PFS Medical History Pain in right knee Obesity, unspecified Nocturia more than twice per night History of herpes zoster Contact with and (suspected) exposure to other hazardous substances Carcinoma in situ of prostate Bilateral inguinal hernia, without obstruction or gangrene, recurrent Osteoarthritis Prostate cancer Surgical History H/O prostatectomy Family History Other Colon cancer Social History Patient Tobacco Use Status: Never used Tobacco Review of Systems Const Denies chills and Denies fever(s) Card Reports no additional complaints and Denies syncope Resp Denies cough GI Denies abdominal pain and Denies heartburn Reports as per HPI and Denies change in libido Neuro Denies syncope Psych Denies change in libido Endo Denies change in libido Physical Exam Const General: cooperative, healthy appearing, comfortable and no acute distress Orientation/consciousness: patient oriented x3 HEENT Face and sinus: Yes normal facial exam Mouth: moist mucous membranes Neck Neck: Yes normal visual inspection, Yes full ROM and Yes trachea midline Chest Chest palpation & inspection: normal inspection of the chest Resp Effort & Inspection: normal respiratory effort, able to speak in complete sentences and no respiratory distress GI Inspection: Yes normal to inspection Back/Spine/Pelvis Cervical Spine: normal cervical lordosis Thoracic/Lumbar Spine: thoracic and lumbar spine normal to inspection Skin General skin exam: no rashes or lesions noted Neuro General: patient oriented x3, gait normal, tone normal and moves all extremities Extrem General: Yes normal to inspection and Yes capillary refill normal Assessment & Plan Assessment & Plan (1) Erectile dysfunction after radical prostatectomy: Code(s): N52.31 - Erectile dysfunction following radical prostatectomy Category: Medical Plan Risks, benefits and alternatives to therapy were discussed. These include but are not limited to infection, bleeding, damage to local organs and tissues, need for further interventions. Anesthetic risks regarding cardiac arrhythmia, blood clots, and potential mortality were discussed. The patient understands the typical recovery time and the outpatient nature of the procedure. After consideration of these risks the patient gives full informed consent and they wish to move ahead with the procedure. Penile prosthetic - coloplast Patient Instructions: This note is constructed using voice recognition software. While every effort has been made to ensure accuracy sleep lab technologist errors may have been included. Imaging studies, laboratory and physical exam results were discussed and reviewed in detail. No major barriers to patient understanding were identified. An opportunity to ask questions regarding the treatment plan was provided. All questions were answered. The patient expressed understanding and agreement with the above treatment plan. The patient is aware they should contact our office by phone for worsening of their current condition or the appearance of new urologic symptoms. Compliance is encouraged with any medications and followup testing that is ordered. It is a privilege to participate in the urologic care of your patient. If you have any questions or concerns regarding treatment for the above conditions, or other urologic issues, please do not hesitate to contact me. The office telephone contact is [phone]. Sincerely, Dr Alejandro Jade MD, [facility] - Urology Compassionate Specialist Care for the Genitourinary System Coding Level of Care Code Est Pt Level 4 (28787) Diagnoses Erectile dysfunction after radical prostatectomy N52.31
== END 2024-12-20 09:21 | disposition home or self-care (01) ==
LOC: HO.HUSH 08:10
PROVIDERS: PCP Nurse Practitioner Family; Visit Provider Urology
DX: N52.31 Erectile dysfunction following radical prostatectomy (principal)
CPT/HCPCS: 99214

== ENCOUNTER → 2024-12-20 08:10 | Outpatient (BNVA) | payer OTHER, SELFPAY | PROVIDERS: PCP Nurse Practitioner Family; Visit Provider Urology | DX: N52.31 Erectile dysfunction following radical prostatectomy (principal) | CPT/HCPCS: 99212 ==